=== PATIENT | male | born 1950 | race Caucasian/White ===

== ENCOUNTER 2020-02-10 11:27 | Emergency (ER) | payer MEDICARE, SELFPAY ==
[2020-02-10 11:30] VITALS: BP 173/72; PULSE 84; RESP 20; TEMP 36.8; O2SAT 96
--- NOTE | 2020-02-10 11:56 | ED.WOUNDLAC ---
HPI - Wound/Laceration General Chief Complaint: Wound/Laceration Stated Complaint: lac/left wrist Time Seen by Provider: 02/10/20 11:35 Source: patient Mode of arrival: ambulatory Limitations: no limitations History of Present Illness HPI narrative: This is a 69 year old male that presents to the ER for laceration to left wrist sustained just prior to arrival. Reports he was cleaning up scrap metal and cut the wrist. Reports bleeding to the area. He is unsure of his last tetanus vaccine. Denies numbness or decreased ROM. Related Data Allergies Allergy/AdvReac Type Severity Reaction Status Date / Time amoxicillin Allergy Unknown Skin Verified 01/16/20 14:30 Reaction cephalexin Allergy Unknown Nausea Verified 01/16/20 14:30 clarithromycin Allergy Unknown upset Verified 01/16/20 14:30 stomach propranolol Allergy Unknown Unknown Verified 01/16/20 14:30 theophylline [Chetan-Dur] Allergy Unknown intolerance Verified 01/16/20 14:30 doxycycline AdvReac Intermediate Other Verified 02/10/20 12:12 Review of Systems Review of Systems: Narrative: CONSTITUTIONAL: Denies fever SKIN: Reports laceration MUSCULOSKELETAL: Denies joint pain, or myalgia. NEUROLOGIC: Denies numbness All systems reviewed & are unremarkable except as noted in HPI and below PMFSH Past Medical History Medical History (Updated 02/10/20 @ 12:31 by Kateryna Cannon PA-C) Acute sinusitis Depressive disorder, not elsewhere classified Essential (primary) hypertension GERD with esophagitis Obstructive sleep apnea (adult) (pediatric) Type 2 diabetes mellitus without complication, without long-term current use of insulin Unspecified asthma Surgical History Surgical History H/O lumbosacral spine surgery History of carpal tunnel surgery History of phacoemulsification of cataract of both eyes with intraocular lens implantation 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 HEAD: Normocephalic, atraumatic. EYES: EOMI. EXTREMITIES: Normal range of motion. No edema. Left wrist ventral surface with 1.5cm linear laceration into subcutaneous tissue SKIN: Warm, dry, no rash. NEURO: No focal deficits. Alert and oriented x3. PSYCH: Normal mood and affect Course Vital Signs Vital signs: Vital Signs Temperature 98.2 F 02/10/20 11:30 Pulse Rate 84 02/10/20 11:30 Respiratory Rate 02/10/20 11:30 Blood Pressure 173/72 H 02/10/20 11:30 Pulse Oximetry 96 02/10/20 11:30 Temperature 98.2 F 02/10/20 11:30 Pulse Rate 84 02/10/20 11:30 Respiratory Rate 02/10/20 11:30 Blood Pressure 173/72 H 02/10/20 11:30 Pulse Oximetry 96 02/10/20 11:30 Procedures Laceration Laceration 1: Date: 02/10/20 Time: 12:30 Site: upper extremity Side (If applicable): left Size (cm): 1.5 Description: linear Depth: simple, single layer Local Anesthetic: lidocaine 1% and with epi Amount of anesthesia used (mL): 2 Pre-repair: irrigated ====== Skin Level ====== Skin layer closed with: nylon Size (cm): 5-0 Number of sutures: 3 ====== Subcutaneous Layer ====== ====== Muscle Layer ====== ====== Tendon Layer ====== Dressing: Covered with antibiotic ointment, Telfa, Kerlix and Coban MDM - Wound/Laceration MDM Narrative Medical decision making narrative: Patient presents the emergency department for laceration to left wrist sustained just prior to arrival. Patient's wound was irrigated and closed with sutures. Patient was updated on tetanus. Patient and family were educated on wound care. He is to follow-up with primary care doctor. He was given warni
[2020-02-10] MEDS: TETANUS,DIPHTHERIA,AC PERTUSSIS ADULT (0.5 ML) BOOSTRIX IM (12:40)
== END 2020-02-10 13:36 | disposition home or self-care (01) ==
PROVIDERS: Emergency Provider Emergency Medicine; PCP Family Medicine
DX: S61.512A Laceration without foreign body of left wrist, initial encounter (principal); I10 Essential (primary) hypertension; K21.0 Gastro-esophageal reflux disease with esophagitis; G47.33 Obstructive sleep apnea (adult) (pediatric); E11.9 Type 2 diabetes mellitus without complications; J45.909 Unspecified asthma, uncomplicated; Z98.42 Cataract extraction status, left eye; Z98.41 Cataract extraction status, right eye; Z96.1 Presence of intraocular lens; W26.8XXA Contact with other sharp object(s), not elsewhere classified, initial encounter; Z23 Encounter for immunization
CPT/HCPCS: 12001; 90471; 90715; 99282

== ENCOUNTER 2020-07-11 13:14 | Emergency (ER) | payer MEDICARE, SELFPAY ==
--- NOTE | 2020-07-11 13:23 | ED.URI ---
HPI - URI/Sore Throat General Chief Complaint: Upper Respiratory Infection Stated Complaint: sinus Time Seen by Provider: 07/11/20 13:23 Source: patient and RN notes reviewed History of Present Illness HPI Narrative: Patient is a 70-year-old male who presents the urgent care with complaints of 2 to 3-week history of ear pressure, intermittent headaches and sinus pressure. Patient states he has a long history of sinusitis and typically sees his PCP. However, when he called this past week they told him they would not see him in the office because he may have a virus . Patient was not sent for coronavirus testing. Denies of any recent coughing, shortness of breath, nausea, vomiting, fever. Patient states that symptoms have progressively gotten worse over the last week, now causing some dizziness. Patient has never followed up with an ENT. States that even though doxycycline is on his allergy list, he took 2 leftover doses without any improvement of symptoms. Patient has also been using Flonase nasal spray. No other acute complaints. No acute distress noted. Patient read the plan of care. Related Data Home Medications Medication Instructions Recorded Confirmed fluticasone propionate 2 spray INTRANASAL DAILY 07/11/20 07/11/20 metoprolol succinate 50 mg PO DAILY 07/11/20 07/11/20 Allergies Allergy/AdvReac Type Severity Reaction Status Date / Time amoxicillin Allergy Unknown Skin Verified 07/11/20 13:26 Reaction cephalexin Allergy Unknown Nausea Verified 07/11/20 13:26 clarithromycin Allergy Unknown upset Verified 07/11/20 13:26 stomach propranolol Allergy Unknown Unknown Verified 07/11/20 13:26 theophylline [Chetan-Dur] Allergy Unknown intolerance Verified 07/11/20 13:26 doxycycline AdvReac Intermediate turns Verified 07/11/20 13:26 mouth white Review of Systems Review of Systems: Narrative: CONSTITUTIONAL: Denies fever, chills, or sweats. EYES: Denies visual changes, redness, or discharge. ENT: Reports of nasal congestion, head congestion, postnasal drainage and bilateral otalgia CARDIOVASCULAR: Denies chest pain, palpitations, or edema. RESPIRATORY: Denies cough or dyspnea. GASTROINTESTINAL: Denies abdominal pain, nausea, vomiting, or diarrhea. GENITOURINARY: Denies dysuria or hematuria. SKIN: Denies rash or itching. MUSCULOSKELETAL: Denies back pain, joint pain, or myalgia. NEUROLOGIC: Reports of intermittent headaches All other systems reviewed are negative, except as documented in HPI. [facility] Social History Social History Smoking status: Never smoker Alcohol intake: never Comments At the time of my signature, I reviewed and agree with the nursing past medical, surgical, social, and family history. There is no relevant family history pertinent to the patient complaint. Exam Narrative: Exam Narrative: GENERAL: This is a well-nourished, well-developed patient, in no apparent distress. HEAD: normocephalic, atraumatic. Mild frontal sinus tenderness EYES: PERRL. Sclera clear/white. Vision is grossly intact. EARS: External ears normal, auditory canals clear and without drainage, TMs normal without perforation. Hearing grossly intact. NOSE: External nose normal with no obvious nasal discharge, nares without redness, no rhinorrhea. THROAT: Mucous membranes moist, posterior pharynx clear. Mild postnasal drainage NECK: Neck supple CARDIOVASCULAR: Regular rate and rhythm RESPIRATORY: Clear to auscultation. Breath sounds equal bilaterally. No wheezes, rales, or rhonchi. SKIN: warm, intact with no suspicious lesions or rash, good texture and turgor. NEURO: awake, alert, and oriented to person, place and time. There were no obvious focal neurologic abnormalities. EXTREMITIES: No clubbing, cyanosis, or edema. Course Vital Signs Vital signs: Vital Signs Temperature 98.3 F 07/11/20 13:24 Pulse Rate 85 07/11/20 13:24 Respiratory Rate 20 07/11/20
[2020-07-11 13:24] VITALS: BP 151/65; PULSE 85; RESP 20; TEMP 36.8; O2SAT 97
== END 2020-07-11 13:43 | disposition home or self-care (01) ==
PROVIDERS: Emergency Provider Nurse Practitioner Family; PCP Family Medicine
DX: J32.9 Chronic sinusitis, unspecified (principal); E78.00 Pure hypercholesterolemia, unspecified; I10 Essential (primary) hypertension; J44.9 Chronic obstructive pulmonary disease, unspecified; G47.30 Sleep apnea, unspecified; K21.9 Gastro-esophageal reflux disease without esophagitis; Z96.653 Presence of artificial knee joint, bilateral; E11.9 Type 2 diabetes mellitus without complications
CPT/HCPCS: 99213; G0463

== ENCOUNTER → 2021-01-03 08:08 | Outpatient (CLI) | payer MEDICARE, SELFPAY ==
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
== END ==
DX: J32.1 Chronic frontal sinusitis (principal)
CPT/HCPCS: 70486

== ENCOUNTER 2021-02-05 09:17 | Outpatient (CLI) | payer MEDICARE, SELFPAY ==
--- NOTE | 2021-02-05 12:49 | WPDSIXMINUTE ---
Six Minute Walk This is a 6 minutes walk test. The test was performed and interpreted in accordance with the 2014 ERS/ATS task force guidelines. Findings: The patient's resting room air oxygen saturation measured by pulse oximetry was 91% and heart rate was 71 bpm. Patient ambulated for 366 meters and oxygen saturation remained 91 to 94%. Heart rate at the end of the study was 103 bpm. There are no prior studies for comparison. Six Minute Walk Procedure Procedure Performed Pulmonary Stress Test (6 min walk)
--- NOTE | 2021-02-05 12:51 | P.PCNPFT_ITS ---
PFT Interpretation This is a pulmonary function test with pre and post-bronchodilator spirometry, plethysmography and diffusing capacity. The test was performed and results interpreted in accordance with the 2019 and 2005 ATS/ERS Task Force guidelines respectively using the Global Lung Function Initiative-2012 reference equations. Patient demonstrated good effort and c ooperation. Reproducibility criteria were met. The quality of the pre bronchodilator spirometry maneuver was Grade A and post bronchodilator spirometry maneuver was Grade A. Findings: Spirometry: There is decreased maximal expiratory airflow at low lung volumes with a mildly concave expiratory flow tracing. The contour of the inspiratory flow tracing is normal. The pre bronchodilator FVC is 2.85 L, 68% predicted. The pre bronchodilator FEV1 is 2.09 L, 66% predicted. The FEV1: FVC ratio 73%. The post bronchodilator FVC is 2.83 L, representing a 1% decrease. The post bronchodilator FEV1 is 2.27 L, representing a 9% increase. Plethysmography: The total lung capacity is 6.90 L, 98% predicted. Functional residual capacity is 4.11 L, 109% predicted. The residual volume is 3.87 L, 155% predicted. Diffusing capacity: The absolute diffusion capacity is 16.5, 64% predicted. The diffusing capacity corrected for alveolar volume is 3.85, 99% predicted. In comparison to previous pulmonary function test performed on 04/20/2018 the post bronchodilator FVC is unchanged from 2.97 L to 2.83 L, the post bronchodilator FEV1 is unchanged from 2.44 L to 2.27 L. the total lung capacity is decreased from 7.96 L to 6.90 L. The functional residual capacity is unchanged from 4.25 L to 4.11 L. The residual volume has remained unchanged from 4.23 L to 3.87 L. The absolute diffusion capacity is decreased from 19.5 to 16.5. The DLCO corrected for alveolar volume has decreased from 4.53 to 3.85. Impression: There is a moderate obstructive abnormality without significant improvement after inhaling a single dose of albuterol. The increase in residual volume is consistent with air trapping from an obstructive abnormality. The absolute diffusing capacity is mildly decreased and normalizes when corrected for alveolar volume. In comparison to the previous pulmonary function test on 04/20/2018 there has been a greater than anticipated time dependent decrease in total lung capacity, absolute diffusing capacity and diffusing capacity corrected for alveolar volume with no change in the FVC, FEV1, functional residual capacity, and residual volume. Clinical correlation is recommended. There are no prior studies for comparison PFT Procedure Performed PFT Procedure Performed Spirometry with Pre/Post Bronchodilator Plethysmography (Lung Vol) Diffusing Cap (DLCO)
== END 2021-02-05 09:18 | disposition home or self-care (01) ==
PROVIDERS: PCP Family Medicine; Visit Provider Internal Medicine Critical Care Medicine
DX: R06.09 Other forms of dyspnea (principal); R94.2 Abnormal results of pulmonary function studies
CPT/HCPCS: 94060; 94618; 94726; 94729

== ENCOUNTER 2021-08-07 17:15 | Emergency (ER) | payer MEDICARE, SELFPAY ==
--- NOTE | ~2021-08-07 | CT_ITS ---
EXAMINATION: CT brain wo con INDICATION: Head injury COMPARISON: 07/12/2015 TECHNIQUE: Standard unenhanced head CT. The dose-length product (DLP) was 605.33 mGy-cm. The mA was a djusted according to patient size. Iterative reconstruction technique was employed. FINDINGS: There is a laceration and swelling of the frontal scalp. There is no acute intraparenchymal hemorrhage. No evidence of mass lesion. No evidence of acute infarction. There is mild periventricul ar and subcortical hypodensity probably related to small vessel ischemic disease. There is mild promi nence of the sulci and ventricles related to cerebral atrophy. Intracranial calcified cerebral athero sclerosis is noted. There are no extra-axial collections. There is no mass effect or midline shift. C hanges in the globes are likely from ocular lens surgery. The visualized sinuses and mastoid air cell s are well aerated. IMPRESSION: 1. No acute intracranial abnormality. 2. Age related findings. Reviewed, dictated and finalized at [facility].
--- NOTE | ~2021-08-07 | XR_ITS ---
EXAMINATION: XR wrist RT min 3V INDICATION: Right wrist pain TECHNIQUE: Four views of the right wrist are obtained. COMPARISON: None available FINDINGS: Bone alignment is normal. There is a questionable fracture at the base of the second metaca rpal seen only on the lateral view. Dorsal buckling of the distal radius is likely related to prior i njury. IMPRESSION: 1. Possible fracture at the base of the second metacarpal. Consider further evaluation with CT. Reviewed, dictated and finalized at [facility]. IMPRESSION: 1. Possible fracture at the base of the second metacarpal. Consider further azul luation with CT.
--- NOTE | ~2021-08-07 | CT_ITS ---
EXAMINATION: CT facial bones wo con DATE: 08/07/2021 18:01 INDICATION: Head injury TECHNIQUE: Computed tomography (CT) of the facial bones and maxillofacial region was performed withou t intravenous contrast. The dose-length product (DLP) was 738.35 mGy-cm. Automated exposure control a nd iterative reconstruction technique were employed. COMPARISON: None. FINDINGS: There is a midline frontal scalp laceration. There are comminuted fractures of the nasal rea jerman. No additional facial bone fracture is identified. The globes and orbits are intact. Changes in t he globes are likely from ocular lens surgery. There is moderate to severe spondylosis of the visuali zed cervical spine. IMPRESSION: 1. Comminuted nasal bone fractures. 2. Midline frontal scalp laceration. Reviewed, dictated and finalized at [facility].
[2021-08-07 17:17] VITALS: BP 165/81; PULSE 74; RESP 18; TEMP 36.6; O2SAT 97
--- NOTE | 2021-08-07 17:42 | ED.FALL ---
HPI - Fall General Chief Complaint: Fall Stated Complaint: FALL Source: RN notes reviewed History of Present Illness HPI Narrative: Patient presents emergency department from home via EMS for fall. Patient states that he was walking his basement when he tripped on some cords and fell striking his head on the stairs notes a laceration across his forehead as well as a laceration on his nose patient states he did not lose consciousness but did see stars . Patient also notes mild pain to his right wrist he denies any other trauma or injury denies any neck pain chest pain, shortness of breath abdominal pain nausea vomiting unsure of last tetanus shot Related Data Home Medications Medication Instructions Recorded Confirmed fluticasone propionate 2 spray INTRANASAL DAILY 07/11/20 07/30/21 Allergies Allergy/AdvReac Type Severity Reaction Status Date / Time amoxicillin Allergy Unknown Skin Verified 07/30/21 11:21 Reaction cephalexin Allergy Unknown Nausea Verified 07/30/21 11:21 clarithromycin Allergy Unknown upset Verified 07/30/21 11:21 stomach propranolol Allergy Unknown Unknown Verified 07/30/21 11:21 theophylline [Chetan-Dur] Allergy Unknown intolerance Verified 07/30/21 11:21 doxycycline AdvReac Intermediate turns Verified 07/30/21 11:21 mouth white Review of Systems Review of Systems: Gen.: Denies fevers or chills Eyes: Denies eye pain or visual change ENT: Denies congestion Respiratory: Denies shortness of breath CV: Denies chest pain GI: Denies abdominal pain nausea, emesis Musculoskeletal: Denies back pain or muscle pain Neuro: Denies numbness, tingling, weakness or focal weakness Skin: Reports laceration to forehead Except as documented, all other systems reviewed and negative [facility] Past Medical History Medical History (Updated 08/07/21 @ 19:48 by Myles Brownlee DO) Acute sinusitis Depressive disorder, not elsewhere classified Essential (primary) hypertension GERD with esophagitis Obstructive sleep apnea (adult) (pediatric) Type 2 diabetes mellitus without complication, without long-term current use of insulin Unspecified asthma Surgical History Surgical History H/O lumbosacral spine surgery History of carpal tunnel surgery History of phacoemulsification of cataract of both eyes with intraocular lens implantation 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 Family History Family History Mother Diabetes mellitus Hypertension Father Family history of cardiovascular disease, Onset Age: 84 Family history of congestive heart failure, Onset Age: 84 Social History Social History Smoking status: Never smoker Alcohol intake: never Exam Narrative: APPEARANCE: No acute distress, nontoxic, resting in bed EYES: EOMI, PERRL HEENT: Normocephalic 6 mm horizontal laceration across anterior forehead that is linear and deep with mild venous bleeding no foreign bodies, 0.5 cm laceration of the bridge of the nose nares patent or mucosa moist for range of motion of the jaw without pain Neck: Supple no midline tenderness palpation full range of motion of the neck without pain RESPIRATORY: No respiratory distress Clear to auscultation bilaterally with no rhonchi wheezing or rales. CARDIOVASCULAR: Regular rate and rhythm without murmurs rubs or gallops. ABDOMINAL: Soft, nontender, nondistended, no rebound or guarding MUSCULOSKELETAl: Moves all extremities. No clubbing, cyanosis or edema. Tender palpation of the right dorsal wrist no swelling full flexion-extension of the wrist with pain with full flexion no tenderness of the right elbow or shoulder radial pulse 2+ neurovascular NEURO: Awake and alert x 4. Following commands, speech normal, no focal deficits SKIN:: Warm, dry. No rashes lesions or abrasions PSYCHIATRIC: Normal af
[2021-08-07] MEDS: TETANUS,DIPHTHERIA,AC PERTUSSIS ADULT (0.5 ML) BOOSTRIX IM (18:26)
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
[2021-08-07] MEDS: CLINDAMYCIN HCL 150 MG CAP 300 MG PO (20:12)
[2021-08-07 20:29] VITALS: BP 181/92; PULSE 74; RESP 16; O2SAT 95
== END 2021-08-07 20:18 | disposition home or self-care (01) ==
PROVIDERS: Emergency Provider Emergency Medicine; PCP Family Medicine
DX: S02.2XXA Fracture of nasal bones, initial encounter for closed fracture (principal); S01.21XA Laceration without foreign body of nose, initial encounter; S01.81XA Laceration without foreign body of other part of head, initial encounter; S63.501A Unspecified sprain of right wrist, initial encounter; Z23 Encounter for immunization; I10 Essential (primary) hypertension; K21.00 Gastro-esophageal reflux disease with esophagitis, without bleeding; G47.33 Obstructive sleep apnea (adult) (pediatric); E11.9 Type 2 diabetes mellitus without complications; J45.909 Unspecified asthma, uncomplicated; Z98.42 Cataract extraction status, left eye; Z98.41 Cataract extraction status, right eye; Z96.1 Presence of intraocular lens; Z79.84 Long term (current) use of oral hypoglycemic drugs; W18.09XA Striking against other object with subsequent fall, initial encounter
CPT/HCPCS: 12011; 12015; 12052; 70450; 70486; 73110; 90471; 90715; 99284; A9270

== ENCOUNTER 2021-08-25 11:51 | Outpatient (CLI) | payer MEDICARE, SELFPAY ==
--- NOTE | ~2021-08-25 | XR_ITS ---
XR wrist RT 2V 08/25/2021 12:12 Indication: Right wrist pain Procedure: 2 views right wrist Comparison: 08/07/2021 Findings: No fracture, subluxation or dislocation. No significant soft tissue abnormality. No foreign bodies. Impression: 1: No acute fracture. Reviewed, dictated and finalized at [facility]. Impression: 1: No acute fracture.
== END 2021-08-25 11:52 | disposition home or self-care (01) ==
LOC: ANHIMG 11:56
PROVIDERS: PCP Family Medicine; Visit Provider Physician Assistant
DX: M25.539 Pain in unspecified wrist (principal)
CPT/HCPCS: 73100

== ENCOUNTER 2021-10-08 16:44 | Emergency (ER) | payer MEDICARE, SELFPAY ==
--- NOTE | 2021-10-08 16:50 | ED.URI ---
HPI - URI/Sore Throat General Chief Complaint: Upper Respiratory Infection Stated Complaint: sorethroat,cough,chills Time Seen by Provider: 10/08/21 16:50 Source: patient and RN notes reviewed History of Present Illness [facility] Narrative: Patient is a 71-year-old male who presents the urgent care with complaints of cough, postnasal drainage, chills and sore throat. Patient states it started on Thanksgiving and he has taken cough drops and using his normal inhalers for his COPD. Patient denies of any increase shortness of breath or chest pain. Patient denies of any known exposures to Covid or influenza. Patient denies of any fever, nausea or vomiting. Patient has been Covid vaccinated. No other acute complaints. No acute distress noted. Patient read the plan of care. Some parts of this dictation were generated by voice recognition software and may contain typographical and/or grammatical inaccuracies. Related Data Home Medications Medication Instructions Recorded Confirmed cetirizine [Zyrtec] 10 mg PO DAILY 10/08/21 10/08/21 ipratropium-albuterol 3 ml INHALATION Q4H 10/08/21 10/08/21 Allergies Allergy/AdvReac Type Severity Reaction Status Date / Time amoxicillin Allergy Unknown Skin Verified 10/08/21 17:00 Reaction cephalexin Allergy Unknown Nausea Verified 10/08/21 17:00 clarithromycin Allergy Unknown upset Verified 10/08/21 17:00 stomach propranolol Allergy Unknown Unknown Verified 10/08/21 17:00 theophylline [Chetan-Dur] Allergy Unknown intolerance Verified 10/08/21 17:00 doxycycline AdvReac Intermediate turns Verified 10/08/21 17:00 mouth white Review of Systems Review of Systems: CONSTITUTIONAL: Denies fever, chills, or sweats. EYES: Denies visual changes, redness, or discharge. ENT: Reports of congestion, sore throat, postnasal drainage CARDIOVASCULAR: Denies chest pain, palpitations, or edema. RESPIRATORY: Reports of cough without any increase in dyspnea GASTROINTESTINAL: Denies abdominal pain, nausea, vomiting, or diarrhea. GENITOURINARY: Denies dysuria or hematuria. SKIN: Denies rash or itching. MUSCULOSKELETAL: Denies back pain, joint pain, or myalgia. NEUROLOGIC: Denies headache, numbness, or weakness. All other systems reviewed are negative, except as documented in HPI. 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 There is no relevant family history pertinent to the patient complaint. Exam Narrative: GENERAL: This is a well-nourished, well-developed patient, in no apparent distress. HEAD: normocephalic, atraumatic. EYES: PERRL. Sclera clear/white. Vision is grossly intact. Clear drainage bilaterally EARS: External ears normal, auditory canals clear and without drainage, TMs normal without perforation. Hearing grossly intact. NOSE: External nose normal with no obvious nasal discharge, nares
[2021-10-08 16:55] VITALS: BP 156/76; PULSE 92; RESP 18; TEMP 37.2; O2SAT 97
== END 2021-10-08 17:08 | disposition home or self-care (01) ==
PROVIDERS: Emergency Provider Nurse Practitioner Family; PCP Family Medicine
DX: J44.9 Chronic obstructive pulmonary disease, unspecified (principal); E11.9 Type 2 diabetes mellitus without complications; I10 Essential (primary) hypertension
CPT/HCPCS: 99213; G0463

== ENCOUNTER 2021-10-14 15:11 | Emergency (ER) | payer MEDICARE, SELFPAY ==
--- NOTE | ~2021-10-14 | XR_ITS ---
EXAMINATION: XR chest 2V DATE: 10/14/2021 15:33 INDICATION: Productive cough TECHNIQUE: PA and lateral views of the chest are obtained. COMPARISON: 07/12/2015 FINDINGS: The lungs are free of acute opacities. There is no pleural effusion or pneumothorax. The ca rdiomediastinal silhouette is normal. There is moderate thoracic spondylosis. IMPRESSION: 1. No acute cardiopulmonary abnormality. Reviewed, dictated and finalized at location A. TRIMMER
[2021-10-14 15:22] VITALS: BP 127/93; PULSE 64; RESP 18; TEMP 36.9; O2SAT 97
--- NOTE | 2021-10-14 16:16 | ED.URI ---
HPI - URI/Sore Throat General Chief Complaint: Upper Respiratory Infection Stated Complaint: cough,phlegm Source: patient and RN notes reviewed Limitations: no limitations History of Present Illness HPI Narrative: The obese vaccinated patient, reports he is a non-smoker/nondrinker, presents with a weeklong history of productive cough and congestion associated with possible wheezing. He was seen here about a week ago and given a course of Levaquin and Medrol Dosepak-for which he like a refill. No fever, sore throat, earache, calf edema/pain, noncompliance. Symptoms are mild to moderate associated with wheezing. 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] Related Data Home Medications Medication Instructions Recorded Confirmed cetirizine [Zyrtec] 10 mg PO DAILY 10/08/21 10/14/21 ipratropium-albuterol 3 ml INHALATION Q4H 10/08/21 10/14/21 Allergies Allergy/AdvReac Type Severity Reaction Status Date / Time amoxicillin Allergy Unknown Skin Verified 10/14/21 15:16 Reaction cephalexin Allergy Unknown Nausea Verified 10/14/21 15:16 clarithromycin Allergy Unknown upset Verified 10/14/21 15:16 stomach propranolol Allergy Unknown Unknown Verified 10/14/21 15:16 theophylline [Chetan-Dur] Allergy Unknown intolerance Verified 10/14/21 15:16 doxycycline AdvReac Intermediate turns Verified 10/14/21 15:16 mouth white Review of Systems Review of Systems: General/Constitutional: No weight loss,fever Eyes: N0: Redness,discharge Ears/Nose/Throat: No: Epistaxis,ear discharge Respiratory: Denies: Hemoptysis Gastrointestinal: No Vomiting, Bleeding-rectal Skin: No Lumps, eruption Neurologic: No Focal Weakness,Sz Hematologic: Denies: Petechiae/Purpura Psychiatric: No: Suicida ideationl All Other Systems: Reviewed and Negative [facility] Past Medical History Medical History (Updated 10/15/21 @ 11:23 by Maxim Unger MD) Acute sinusitis Depressive disorder, not elsewhere classified Essential (primary) hypertension GERD with esophagitis Obstructive sleep apnea (adult) (pediatric) Type 2 diabetes mellitus without complication, without long-term current use of insulin Unspecified asthma Surgical History Surgical History H/O lumbosacral spine surgery History of carpal tunnel surgery History of phacoemulsification of cataract of both eyes with intraocular lens implantation 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 There is no relevant family history pertinent to the presenting complaint Exam Narrative: General Appearance: Well appearing, obese/well nourished EYE: PERRLA, Conjunctiva clear Ears: Auditory canal normal, TM normal Nose: Rhinorrhea, Mucousal erythema Mouth/Throat: MM moist, Uvula midline, Pharyngeal erythema Neck: Supple, No adenopathy Respiratory: No respiratory distress, increased AP diameter, mild decreased BS especially bases, scattered wheezing Cardiovascular: RRR, No JVD Musculoskeletal: Non tender, Normal strength Skin: Warm, Dry Neurological: A&O x3, CN II-XII intact Psychiatric: Normal mood, Normal affect Course Vital Signs Vital signs: Vital Signs Temperature 98.4 F 10/14/21 15:22 Pulse Rate 64 10/14/21
[2021-10-15 20:25] LABS: SARS-CoV-2 RNA PCR Negative
== END 2021-10-14 16:23 | disposition home or self-care (01) ==
PROVIDERS: Emergency Provider Emergency Medicine; PCP Family Medicine
DX: J21.9 Acute bronchiolitis, unspecified (principal); J45.901 Unspecified asthma with (acute) exacerbation; Z20.822 Contact with and (suspected) exposure to COVID-19; I10 Essential (primary) hypertension; F32.A Depression, unspecified; K21.00 Gastro-esophageal reflux disease with esophagitis, without bleeding; G47.33 Obstructive sleep apnea (adult) (pediatric); E11.9 Type 2 diabetes mellitus without complications; Z79.4 Long term (current) use of insulin
CPT/HCPCS: 71046; 99213; C9803; G0463; U0003; U0005

== ENCOUNTER 2022-04-24 10:59 | Emergency (ER) | payer MEDICARE, SELFPAY ==
--- NOTE | 2022-04-24 11:16 | ED.URI ---
HPI - URI/Sore Throat General Chief Complaint: Upper Respiratory Infection Stated Complaint: Sore Throat,Neck Pain,Sinus Time Seen by Provider: 04/24/22 11:17 History of Present Illness HPI Narrative: Hi Whaley is a 72 yo male with a PMH of HTN, high cjolesterol, GERD, diabetes, depression, chronic progressive lung disease, who comes with 4 days of sore throat and drainage, no fever. Related Data Home Medications Medication Instructions Recorded Confirmed cetirizine 10 mg tablet (Zyrtec) 10 mg PO DAILY 10/08/21 04/24/22 Allergies Allergy/AdvReac Type Severity Reaction Status Date / Time amoxicillin Allergy Unknown Skin Verified 04/24/22 11:03 Reaction cephalexin Allergy Unknown Nausea Verified 04/24/22 11:03 clarithromycin Allergy Unknown upset Verified 04/24/22 11:03 stomach propranolol Allergy Unknown Unknown Verified 04/24/22 11:03 theophylline [Chetan-Dur] Allergy Unknown intolerance Verified 04/24/22 11:03 doxycycline AdvReac Intermediate turns Verified 04/24/22 11:03 mouth white Review of Systems Review of Systems: CONSTITUTIONAL: Denies fever, chills, sweats. EYES: Denies visual changes, redness, discharge. ENT: Denies rhinorrhea,has congestion, has sore throat, otalgia. CARDIOVASCULAR: Denies chest pain, palpitations, edema. RESPIRATORY: Denies dyspnea, wheezing, cough GASTROINTESTINAL: Denies abdominal pain, nausea, vomiting, diarrhea. GENITOURINARY: Denies dysuria, hematuria, abnormal discharge SKIN: Denies rash or itching. NEUROLOGIC: Denies numbness, or focal weakness. PSYCHIATRIC: Denies anxiety or depression. [facility] Past Medical History Medical History Acute sinusitis CHF (congestive heart failure) COPD (chronic obstructive pulmonary disease) Depressive disorder, not elsewhere classified Essential (primary) hypertension GERD with esophagitis Obstructive sleep apnea (adult) (pediatric) Pain in wrist Type 2 diabetes mellitus without complication, without long-term current use of insulin Unspecified asthma Surgical History Surgical History H/O lumbosacral spine surgery History of carpal tunnel surgery History of phacoemulsification of cataract of both eyes with intraocular lens implantation History of total bilateral 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 There is no relevant family history pertinent to the presenting complaint. Exam Narrative: GENERAL: This is a well-nourished, well-developed patient, in mild distress. HEAD: normocephalic, atraumatic. EYES: PERRL. Sclera clear/white. Vision is grossly intact. EARS: External ears normal, auditory canals clear and witho mld clear drainage, TMs normal without perforation. Hearing grossly intact. NOSE: External nose normal without nasal discharge, nares without redness, no rhinorrhea. THROAT: Mucous membranes moist, posterior pharynx erythema NECK: Neck supple, non-tender CARDIOVASCULAR: Regular rate and rhythm without murmurs, gallops, or rubs. RESPIRATORY: Clear to auscultation. Breath sounds equal bilaterally. No wheezes, rales, or rhonchi. GASTROINTESTINAL: Not done SKIN: warm, intact with no suspicious lesions or rash, good texture and turgor. NEURO: awake, alert, and oriented to person, place and time. There were no obvious focal neurologic abnormalities. Steady gait EXTREMITIES: Normal rang
[2022-04-24 11:29] VITALS: BP 150/98; PULSE 87; RESP 18; TEMP 37.1; O2SAT 96
== END 2022-04-24 11:37 | disposition home or self-care (01) ==
PROVIDERS: Emergency Provider Nurse Practitioner; PCP Family Medicine
DX: J02.0 Streptococcal pharyngitis (principal); J44.9 Chronic obstructive pulmonary disease, unspecified; K21.00 Gastro-esophageal reflux disease with esophagitis, without bleeding; G47.33 Obstructive sleep apnea (adult) (pediatric); E11.9 Type 2 diabetes mellitus without complications; J45.909 Unspecified asthma, uncomplicated; I11.0 Hypertensive heart disease with heart failure; I50.9 Heart failure, unspecified; Z96.653 Presence of artificial knee joint, bilateral
CPT/HCPCS: 87880; 99213; G0463

== ENCOUNTER 2022-06-02 09:54 | Emergency (ER) | payer MEDICARE, SELFPAY ==
[2022-06-02 10:14] VITALS: BP 176/74; PULSE 79; RESP 18; TEMP 36.6; O2SAT 98
--- NOTE | 2022-06-02 10:16 | ED.URI ---
HPI - URI/Sore Throat General Chief Complaint: Upper Respiratory Infection Stated Complaint: strep test Time Seen by Provider: 06/02/22 10:16 Source: patient, RN notes reviewed and old records reviewed Mode of arrival: ambulatory Limitations: no limitations History of Present Illness HPI Narrative: 72-year-old male presents to the [facility] with complaints of a sore mouth for about 1 week. Patient is concerned about strep throat, recently diagnosed. Patient reports that his entire mouth is burning. Similar to when he saw his primary care about a month ago. Patient removed his dentures. White patches noted to the roof of his mouth and on the denture . Denies any fevers. Denies any nausea vomiting or diarrhea. No treatment prior to arrival MD elicited complaint: other (Sore mouth and throat) Related Data Home Medications Medication Instructions Recorded Confirmed cetirizine 10 mg tablet (Zyrtec) 10 mg PO DAILY 10/08/21 05/01/22 Allergies Allergy/AdvReac Type Severity Reaction Status Date / Time amoxicillin Allergy Unknown Skin Verified 05/01/22 11:26 Reaction cephalexin Allergy Unknown Nausea Verified 05/01/22 11:26 clarithromycin Allergy Unknown upset Verified 05/01/22 11:26 stomach propranolol Allergy Unknown Unknown Verified 05/01/22 11:26 theophylline [Chetan-Dur] Allergy Unknown intolerance Verified 05/01/22 11:26 doxycycline AdvReac Intermediate turns Verified 05/01/22 11:26 mouth white Review of Systems Review of Systems: All systems reviewed & are unremarkable except as noted in HPI and below Constitutional: Constitutional: Reports no additional constitutional complaints, Denies chills and Denies fever(s) Eyes: Eyes: Reports no additional eye complaints ENT: Reports as per HPI Cardiovascular: Cardiovascular: Reports no additional cardiovascular complaints Respiratory: Respiratory: Reports no additional respiratory complaints Gastrointestinal: Gastrointestinal: Reports no additional gastrointestinal complaints Musculoskeletal: Musculoskeletal: Reports no additional musculoskeletal complaints Integumentary/Breasts: Skin/Breast: Reports system reviewed and no additional complaints, except as docu Neurologic: Reports system reviewed and no additional complaints, except as documented Psychiatric: Psychiatric: Reports no additional psychiatric complaints Allergic/Immunologic: Allergic/Immunologic: Reports no additional allergic/immunologic complaints [facility] Past Medical History Medical History Acute sinusitis CHF (congestive heart failure) COPD (chronic obstructive pulmonary disease) Depressive disorder, not elsewhere classified Essential (primary) hypertension GERD with esophagitis Obstructive sleep apnea (adult) (pediatric) Pain in wrist Type 2 diabetes mellitus without complication, without long-term current use of insulin Unspecified asthma Surgical History Surgical History H/O lumbosacral spine surgery History of carpal tunnel surgery History of phacoemulsification of cataract of both eyes with intraocular lens implantation 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 There is no relevant family history pertinent to the patient complaint. Exam Const: General: healthy appearing, no acute distress
== END 2022-06-02 10:35 | disposition home or self-care (01) ==
PROVIDERS: Emergency Provider Nurse Practitioner; PCP Family Medicine
DX: B37.0 Candidal stomatitis (principal); I11.0 Hypertensive heart disease with heart failure; I50.9 Heart failure, unspecified; J44.9 Chronic obstructive pulmonary disease, unspecified; K21.00 Gastro-esophageal reflux disease with esophagitis, without bleeding; G47.33 Obstructive sleep apnea (adult) (pediatric); E11.9 Type 2 diabetes mellitus without complications; Z96.653 Presence of artificial knee joint, bilateral
CPT/HCPCS: 87081; 87880; 99213; G0463

== ENCOUNTER 2022-09-03 07:21 | Outpatient (CLI) | payer MEDICARE, SELFPAY ==
--- NOTE | 2022-09-03 07:42 | ECHO_ITS ---
Patient Info Name: Hi Whaley Age: 72 years : 1950 Gender: Male Ht: 70 in Wt: 280 lbs BSA: 2.56 m2 HR: 67 bpm BP: 186 / 82 mmHg Technical Quality: Fair Exam Date: 09/03/2022 8:00 AM Exam Location: [facility] Patient Status: Outpatient Admit Date: 09/03/2022 Staff Ordering Physician: Laya Casas DO Timber Packer: Leigha Trammell RDCS Attending Provider: Laya Casas DO Referring Physician: Augusto KLEIN; Exam Type: CA echo doppler color flow Study Info Indications I50.9 - Heart failure, unspecified Complete two-dimensional, color flow and Doppler transthoracic echocardiogram is performed. Summary 1. Complete two-dimensional, color flow and Doppler transthoracic echocardiogram is performed. 2. Left ventricular chamber dimension is normal. 3. Left ventricular systolic function is normal, estimated at 55-60%. 4. There is mildly increased left ventricular wall thickness. 5. The left ventricular diastolic function is grade I diastolic dysfunction. 6. E/e' 9 is minimally elevated. 7. Global longitudinal strain is abnormal at -14.7%. 8. Moderate lipomatous interatrial septum. 9. No pulmonary hypertension, estimated pulmonary arterial systolic pressure is 29 mmHg. Left Ventricle E/e' 9 is minimally elevated. Global longitudinal strain is abnormal at -14.7%. Left ventricular chamber dimension is normal. Left ventricular systolic function is normal, estimated at 55-60%. There is mildly increased left ventricular wall thickness. The left ventricular diastolic function is grade I diastolic dysfunction. Right Ventricle Right ventricular systolic function is normal and with normal TAPSE 2.7 cm. Right ventricular chamber dimension is normal. Left Atria Left atrial chamber dimension is normal. Right Atria Right atrial chamber dimension is normal. Atrial Septum Moderate lipomatous interatrial septum. Aortic Valve The aortic valve is trileaflet. There is no aortic valve stenosis. There is no aortic valve regurgitation. Pulmonic Valve There is no pulmonic regurgitation. Mitral Valve There is no mitral valve stenosis. There is no mitral valve regurgitation. Tricuspid Valve There is no tricuspid valve regurgitation. No pulmonary hypertension, estimated pulmonary arterial systolic pressure is 29 mmHg. Pericardium/Pleural There is no pericardial effusion. Inferior Vena Cava Normal inferior vena cava with >50% collapse upon inspiration consistent with normal right atrial pressure, 5 mmHg. Aorta The aortic root size at the sinus of Valsalva is normal. Left Ventricular Outflow Tract Name Value Normal LVOT 2D LVOT Diameter 2.1 cm LVOT Doppler LVOT Peak Gradient 4 mmHg LVOT Mean Gradient 2 mmHg LVOT VTI 26 cm LVOT VTI/AV VTI Ratio 0.9 LVOT Stroke Volume 92 ml LVOT CO 5.6 l/min LVOT CI 2.2 l/min/m2 Pulmonic Valve
== END 2022-09-03 07:22 | disposition home or self-care (01) ==
LOC: ANHCARD 07:23
PROVIDERS: PCP Family Medicine; Visit Provider Family Medicine
DX: I50.9 Heart failure, unspecified (principal)
CPT/HCPCS: 93306

== ENCOUNTER 2022-11-06 11:44 | Outpatient (CLI) | payer MEDICARE, SELFPAY ==
--- NOTE | ~2022-11-06 | XR_ITS ---
Clinical Indication: Shortness of breath PA and lateral views of the chest: Comparison: 10/14/2021 Findings: The lungs are clear, without evidence of focal consolidation or pleural effusion. Cardiome diastinal silhouette is within normal limits. Bones and soft tissues are unremarkable. Impression: Normal chest. Reviewed, dictated and finalized at location . FINISHER Impression: Normal chest.
[2022-11-06 14:40] LABS: Influenza A QL RT-PCR Negative (Negative); Influenza B QL RT-PCR Negative (Negative); RSV RNA, RT-PCR Negative (Negative); SARS-CoV-2 RNA PCR Negative
== END 2022-11-06 11:45 | disposition home or self-care (01) ==
LOC: ANHLAB 11:49
PROVIDERS: PCP Family Medicine; Visit Provider Physician Assistant
DX: R06.02 Shortness of breath (principal); J45.909 Unspecified asthma, uncomplicated
CPT/HCPCS: 71046; 87637

== ENCOUNTER 2022-11-21 08:07 | Emergency (ER) | payer MEDICARE, SELFPAY ==
--- NOTE | ~2022-11-21 | XR_ITS ---
XR chest 2V DATE: 11/21/2022 08:55 INDICATION: Cough, fever TECHNIQUE: PA and lateral views COMPARISON: 11/06/2022 PA and lateral chest FINDINGS: Normal heart size. Mild aortic unfolding. No hilar or mediastinal enlargement. Moderate bilateral hyperinflation. No pulmonary infiltrate or consolidation, pleural effusion or pulm onary vascular congestion or pneumothorax. Degenerative spurring of the thoracic spine. Osteopenia. IMPRESSION: Moderate hyperinflation; no active cardiopulmonary disease or significant change since Reviewed, dictated and finalized at location A. TRICIAN DECK IMPRESSION: Moderate hyperinflation; no active cardiopulmonary disease or signi ficant change since 11/06/2022
--- NOTE | 2022-11-21 08:12 | ED.URI ---
HPI - URI/Sore Throat General Chief Complaint: Upper Respiratory Infection Stated Complaint: SORE THROAT/CHILLS/FEVER Time Seen by Provider: 11/21/22 08:13 Source: patient and RN notes reviewed History of Present Illness [facility] Narrative: Patient is a 72-year-old male who presents to the Urgent Care with complaints of sore throat, fever, fatigue, cough and chills. Patient states his cough is productive but is denying any shortness of breath. Patient denies chest pain. Denies any ill exposures. States that his did wake up today feeling fatigued and chilled as well. Patient has been taking Advil. No other acute complaints. No acute distress noted. Patient aware of the plan of care. Some parts of this dictation were generated by voice recognition software and may contain typographical and/or grammatical inaccuracies. Related Data Home Medications Medication Instructions Recorded Confirmed cetirizine 10 mg tablet (Zyrtec) 10 mg PO DAILY 10/08/21 11/06/22 famotidine 40 mg tablet 40 mg PO DAILY 08/13/22 11/06/22 fluticasone propionate 50 2 spray intranasal DAILY 08/13/22 11/06/22 mcg/actuation nasal spray,suspension Allergies Allergy/AdvReac Type Severity Reaction Status Date / Time amoxicillin Allergy Unknown Skin Verified 11/21/22 08:56 Reaction cephalexin Allergy Unknown Nausea Verified 11/21/22 08:56 clarithromycin Allergy Unknown upset Verified 11/21/22 08:56 stomach propranolol Allergy Unknown Unknown Verified 11/21/22 08:56 theophylline [Chetan-Dur] Allergy Unknown intolerance Verified 11/21/22 08:56 doxycycline AdvReac Intermediate turns Verified 11/21/22 08:56 mouth white Review of Systems Review of Systems: CONSTITUTIONAL: Reports of chills and fatigue EYES: Denies visual changes, redness, or discharge. ENT: Denies rhinorrhea, congestion, otalgia. Reports of sore throat CARDIOVASCULAR: Denies chest pain, palpitations, or edema. RESPIRATORY: Reports cough without dyspnea GASTROINTESTINAL: Denies abdominal pain, nausea, vomiting, or diarrhea. GENITOURINARY: Denies dysuria or hematuria. SKIN: Denies rash or itching. MUSCULOSKELETAL: Denies back pain, joint pain, or myalgia. NEUROLOGIC: Reports of headache All other systems reviewed are negative, except as documented in HPI. [facility] Past Medical History Medical History Acute sinusitis CHF (congestive heart failure) COPD (chronic obstructive pulmonary disease) Depressive disorder, not elsewhere classified Essential (primary) hypertension GERD with esophagitis Obstructive sleep apnea (adult) (pediatric) Pain in wrist Type 2 diabetes mellitus without complication, without long-term current use of insulin Unspecified asthma Surgical History Surgical History H/O lumbosacral spine surgery History of carpal tunnel surgery History of phacoemulsification of cataract of both eyes with intraocular lens implantation 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 There is no relevant family history pertinent to the patient complaint. Exam Narrative: GENERAL: This is a well-nourished, well-developed patient, in no apparent distress. HEAD: normocephalic, atraumatic. EYES: PERRL. Sclera clear/white. Vision is grossly intact. EARS: External ears normal, auditory can
[2022-11-21 08:30] VITALS: BP 162/70; PULSE 79; RESP 16; TEMP 36.9; O2SAT 95
[2022-11-21 14:28] LABS: SARS-CoV-2 RNA PCR Negative
== END 2022-11-21 09:48 | disposition home or self-care (01) ==
PROVIDERS: Emergency Provider Nurse Practitioner Family; PCP Family Medicine
DX: B34.9 Viral infection, unspecified (principal); I50.9 Heart failure, unspecified; J44.9 Chronic obstructive pulmonary disease, unspecified; I11.0 Hypertensive heart disease with heart failure; K21.00 Gastro-esophageal reflux disease with esophagitis, without bleeding; E11.9 Type 2 diabetes mellitus without complications; J45.909 Unspecified asthma, uncomplicated; Z20.822 Contact with and (suspected) exposure to COVID-19
CPT/HCPCS: 71046; 87081; 87426; 87804; 87880; 99213; C9803; G0463; U0003; U0005

== ENCOUNTER 2023-05-21 08:12 | Outpatient (CLI) | payer MEDICARE, SELFPAY ==
[2023-05-21 12:10] LABS: Kit Draw Collected
== END 2023-05-21 08:13 | disposition home or self-care (01) ==
LOC: ANHGOSHLAB 08:16
PROVIDERS: PCP Family Medicine; Visit Provider Family Medicine
DX: E11.9 Type 2 diabetes mellitus without complications (principal); D75.89 Other specified diseases of blood and blood-forming organs; Z12.5 Encounter for screening for malignant neoplasm of prostate; I10 Essential (primary) hypertension; I50.9 Heart failure, unspecified
CPT/HCPCS: 36415

== ENCOUNTER 2025-01-30 08:02 | Outpatient (CLI) | payer MEDICARE, SELFPAY ==
--- OUTSIDE RECORDS SUMMARY | 2025-01-30 08:12 | XMS_ITS | Continuity of Care Document ---
Author Name Auto Generated, Auto Generated Organization [facility] Support Name Relationship Address Phone Kandi Whaley Emergency Contact 1 [address] [place] [address] Hi Whaley Self [address] [place] [address] Hi Whaley Financial Responsible Libertarian [address] [place] [address] Summary Purpose Consult/Referral Allergies, Adverse Reactions, Alerts Type Description/Agent Code Date Allergy Active Date Allergy Inactivated Date of Last Reaction Adverse Reactions Severity Status Comments Source of Information FDB Medic ation Name Dilaudid Active Patient History Medications No Known Medications Conditions/Problems Problem/Diagnosis Awareness of Diagnosis Code (ICD-10) Onset Date (Start Date) Resolution Date (End Date) Status Source Comments AFTERCARE FOLLOWING JOINT REPLACEMENT SURGERY Z47.1 08/09/20 16 MD Cuauhtemoc Armstrong PRESENCE OF RIGHT ARTIFICIAL KNEE JOINT Z96.651 08/09/20 16 Active MD Cuauhtemoc Garcia ENCOUNTER FOR OTHER ORTHOPEDIC AFTERCARE Z47.89 04/05/20 16 Active MD Cuauhtemoc Garcia PRESENCE OF LEFT ARTIFICIAL KNEE JOINT Z96.652 04/05/20 16 MD Cuauhtemoc Armstrong OSTEOARTHRITIS OF KNEE, UNSPECIFIED M17.9 04/05/20 16 Active MD Cuauhtemoc Garcia CHRONIC OBSTRUCTIVE PULMONARY DISEASE, UNSPECIFIED J44.9 04/05/20 16 MD Cuauhtemoc Armstrong SLEEP APNEA, UNSPECIFIED G47.30 04/05/20 16 MD Cuauhtemoc Armstrong DEPENDENCE ON OTHER ENABLING MACHINES AND DEVICES Z99.89 04/05/20 16 MD Cuauhtemoc Armstrong ESSENTIAL (PRIMARY) HYPERTENSION I10 04/05/20 16 MD Cuauhtemoc Armstrong OBESITY, UNSPECIFIED E66.9 0 16 Active MD Cuauhtemoc Garcia DIFFICULTY IN WALKING, NOT ELSEWHERE CLASSIFIED R26.2 04/05/20 16 Active MD Cuauhtemoc Garcia MUSCLE WEAKNESS (GENERALIZED) M62.81 04/05/20 16 Active MD Cuauhtemoc Garcia Procedures No Known Procedures
--- OUTSIDE RECORDS SUMMARY | 2025-01-30 08:12 | XMS_ITS | Clinical Summary ---
Author Organization [facility] Ariana albrecht Address [address], [place] [address] Phone Care Team Providers Care Pediatric Psychiatrist Name Role Phone Unavailable Primary Care Provider Unavailabl e Active Problems Problem Noted Date Diagnosed Date Acute kidney failure 08/26/2015 Essential (primary) hypertension 08/26/2015 Obstructive sleep apnea 08/26/2015 Family History Medical History Relation Comments Kidney disease Neg Hx Kidney stone Neg Hx Social History Tobacco Use Types Packs/Day Years Used Date Smoking Tobacco: Never Assessed Sex and Gender Information Value Date Recorded Sex Assigned at Not on file Gender Identity Not on file Sexual Orientation Not on file Last Filed Vital Signs Vital Sign Reading Time Taken Comments Blood Pressure 128/60 08/26/2015 12:01 AM CDT Pulse 84 08/26/2015 12:01 AM CDT Temperature 37.4 C (99.3 F) 08/26/2015 12:01 AM CDT Respiratory Rate - - Oxygen Saturation - - Inhaled Oxygen Concentration - - Weight 127 kg (280 lb) 08/26/2015 12:01 AM CDT Height 180.3 cm (5' 11 ) 08/26/2015 12:01 AM CDT Body Mass Index 39.05 08/26/2015 12:01 AM CDT Plan of Treatment Not on file
--- OUTSIDE RECORDS SUMMARY | 2025-01-30 08:12 | XMS_ITS | Clinical Summary ---
Author Organization [facility] Address [address] [place], [place] [id number] Care Team Providers Care Gas Station Clerk Name Role Phone Unavailable Primary Care Provider Unavailabl e Social History Tobacco Use Types Packs/Day Years Used Date Smoking Tobacco: Never Assessed Sex and Gender Information Value Date Recorded Sex Assigned at Not on file Legal Sex Male 7:01 PM CDT Gender Identity Not on file Sexual Orientation Not on file Plan of Treatment Health Maintenance Due Date Last Done Comments Hepatitis C 1966 DTaP, Tdap and Td Vaccines ( 1 - Tdap) 1967 Zoster Vaccines (1 of 2) 1998 Pneumococcal Vaccine: 65+ Ye ars (1 of 1 - PCV) 2013 RSV Immunization or 60+ Years (1 - 1-dose 75+ series) 2023 COVID-19 Vaccine ( - 2023-2 5 season) 2024 Influenza Adult (#1) 2024 Meningococcal B Vaccine Aged Out No l onger eligible based on patient's age to complete this topic Meningococcal Vaccine Aged Out No chantelle jasmin eligible based on patient's age to complete this topic RSV Immunizations Under 20 Months Aged Out No longer eligible based on patient's age to complete this topic Insurance [facility]
--- OUTSIDE RECORDS SUMMARY | 2025-01-30 08:12 | XMS_ITS | Referral Summary ---
Author Organization [facility] [place] [address] Address [address] [place] [address] Care Team Providers Care Business Solutions Architect Name Role Phone Dona Alvarez MD Unavailable Raudel Branch NP Unavailable [phone] Ariana Toth MD Primary Care Provider + Encounters Date Type Department Care Team Description 01/18/2025 7:18 AM CDT - 01/18/2025 11:59 PM CDT Hospital Encounter [facility] [address] [place], [place] [id number] Raudel Branch NP Cervical spinal stenosis (Primary Dx); Chronic bilateral low back pain, unspecified whether sciatica present; Sacroiliitis; Lumbar post-laminectomy syndrome Discharge Disposition: Discharge to home or self care from Last 3 Months Allergies No known active allergies Medications FLUoxetine (PROzac) 20 mg capsule Take 1 capsule (20 mg total) by mouth daily Active simvastatin (ZOCOR) 40 mg tablet Take 1 tablet (40 mg total) by mouth nightly Active pantoprazole DR (PROTONIX) 40 mg EC tablet Take 1 tablet (40 mg total) by mouth daily Active metoprolol XL (TOPROL-XL) 50 mg 24 hr tablet Take 1 tablet (50 mg total) by mouth daily Active cetirizine (ZyrTEC) 10 mg chewable tablet Take 1 tablet (10 mg total) by mouth daily Active allopurinoL (ZYLOPRIM) 300 mg tablet Take 1 tablet (300 mg total) by mouth daily 3 Active ibuprofen 200 mg tab/cap Take 2 tablet/capsule (400 mg total) by mouth every 6 (six) hours as needed Active metFORMIN (GLUCOPHAGE) 500 mg tablet Take 1 tablet (500 mg total) by mouth daily 3 Active fluticasone propionate (FLONASE) 50 mcg/actuation nasal spray Administer 1 spray into each nostril daily Active glimepiride (AMARYL) 2 mg tablet Take 1 tablet (2 mg total) by mouth daily Active losartan-hydroc hlorothiazide (HYZAAR) 100-25 mg per tablet Take 1 tablet by mouth once daily 90 tablet 3 4 Active Active Problems Problem Noted Date Diagnosed Date Lumbar post-laminectomy syndrome 01/18/2025 Sacroiliitis 01/18/2025 Osteoarthritis 10/03/2024 Sensorineural hearing loss, bilateral 10/03/2024 Chronic right shoulder pain 05/22/2024 Cervical radiculopathy 05/22/2024 Cervical spinal stenosis 05/22/2024 Degenerative arthritis of right shoulder region 05/22/2024 Hearing loss 02/22/2024 Pain in joint involving ankle and foot 4 Shortness of breath 04/02/2023 Assessment & Plan (10/13/2024 8:31 AM NETWORK SYSTEMS ANALYST): Cardiac evaluation is negative. BNP within normal limits. Echocardiography and stress testing are unrevealing. Suspect a component of age, deconditioning, and obesity. Assessment & Plan (04/02/2023 1:30 PM CDT): Mechanism unclear but there is no evidence to support a diagnosis of systolic or diastolic heart failure. Serial echocardiograms over the years have demonstrated stage I diastolic dysfunction. The classic teaching with stage I diastolic dysfunction is that it does not lead to an elevated left atrial pressure and hence should not contribute to dyspnea. Furthermore a recent BNP was only 57. The combination of these findings strongly suggest his symptoms are not due to pulmonary edema. His dyspnea might be the result of ischemic heart disease as there are segmental wall motion abnormalities on his echocardiogram. Will obtain a Lexiscan stress test. Will also offer him a trial of a diuretic. Have prescribed Lasix 40 mg for 7 days. If his dyspnea improves with this than it is conceivable that either his echocardiogram and or his BNP have been misleading. COPD (chronic obstructive pulmonary disease) 03/30/2023 Overview (03/30/2023): cpap takes care of it Right upper quadrant abdominal pain 07/08/2017 Non morbid obesity due to excess calories 2016 History of total knee replacement 04/01/2016 03/30/2023 Acute kidney failure 08/26/2015 03/30/2023 Essential hypertension 08/26/2015 Assessment & Plan (10/13/2024 8:31 AM NETWORK SYSTEMS ANALYST): Well controlled. Continue Hyzaar and metoprolol. Assessment & Plan (04/02/2023 1:33 PM CDT): Modestly elevated today. Unclear if his blood pressure is elevated at home. Have advised him to check his blood pressure twice a day and record those results. Will obtain those readings when we share the results of his stress test. His conceivable that his dyspnea is due to hypertension. Obstructive sleep apnea 08/26/2015 03/30/20 23 Closed fracture of radius and ulna 04/29/2015 03/30/2023 Immunizations Immunization Administration Dates Next Due Influenza, Quadrivalent, Hig h Dose, Preservative Free, Intrr 09/04/2022 Influenza, Quadrivalent, Rec ombinant, Egg Free, Preservative Free, Intramuscular 07/28/2021,08/11/2019,09/01/2018 Influenza, Quadrivalent, Spl it, Preservative Free, Intramuscular 07/17/2015 Influenza, Unspecified 08/12/2014,2012,07/09/2012,09/07,08/19/2010,08/14/2009 Pneumococcal Conjugate PCV 13 02/14/2015 Pneumococcal Conjugate Pcv20 02/15/2023 Pneumococcal Polysaccharide PPV23 07/24/2020 Tdap 08/07/2021,02/10/2020,11/08/2005 ZOSTER LIVE 03/16/2012 ZOSTER Recombinant 02/15/2023,12/18/2022 Social History Tobacco Use Types Packs/Day Years Used Date Smoking Tobacco: Never Smokeless Tobacco: Never Tobacco Cessation:Counseling Given: Not Answered Alcohol Use Standard Drinks/Week Comments No 0 (1 standard drink = 0.6 oz pur e alcohol) AUDIT-C Answer Date Recorded Q1: How often do you have a drink containing alcohol? Monthly or less 05/22/2024 Q2: How many drinks containi ng alcohol do you have on a typical day when you are drinking? Patient does not drink Q3: How often do you have si x or more drinks on one occasion? Never 05/22/2024 Sex and Gender Information Value Date Recorded Sex Assigned at Not on file Legal Sex Male 8:24 PM NETWORK SYSTEMS ANALYST Gender Identity Not on file Sexual Orientation Not on file Occupation Industry Job Start Date Job End Date Retired Not on file Not on file Not on file Last Filed Vital Signs Vital Sign Reading Time Taken Comments Blood Pressure 138/67 01/18/2025 7:54 AM CDT Pulse 82 01/18/2025 7:54 AM CDT Temperature 36.4 C (97.5 F) 06/21/2024 2:51 PM CDT Respiratory Rate 16 01/18/2025 7:54 AM CDT Oxygen Saturation 96% 01/18/2025 7:54 AM CDT Inhaled Oxygen Concentration - - Weight 130.6 kg (288 lb) 10/13/2024 8:02 AM NETWORK SYSTEMS ANALYST Height 177.8 cm (5' 10 ) 10/13/2024 8:02 AM NETWORK SYSTEMS ANALYST Body Mass Index 41.32 10/13/2024 8:02 AM NETWORK SYSTEMS ANALYST Plan of Treatment Not on file Insurance [facility] Member Subscriber Plan / Payer (Ef fective 2015-Present) Name:Hi Whaley Relation to Subscriber:Self Name:Hi Whaley Payer ID:[id number] ([facility]) Type: OTHER Address: [address] [place] [address] MEDICARE MEDICARE FOR[facility]LY [facility] MEDICARE [facility] MEDICARE SUPPLEMENT Advance Directives For more information, please contact: [phone] Documents on File Type Date Recorded Patient Animal Husbandry Professor Expl anation ADVANCE DIRECTIVE 01/27/2023 11:09 AM [employer] SPECIAL EDUCATION TEACHER-MEDICAL Care Teams Business Solutions Architect Relationship Specialty Start Date End Date Ariana Toth MD [address] [place] [address] [place] [address] PCP - General Family Medicine 07/27/24 Dona Alvarez MD [address] [place] [address] Epic Cupid Analyst Family Medicine 07/08/17 [place] [phone] [address] Nurse Practitioner Pain Management 07/12/24
--- OUTSIDE RECORDS SUMMARY | 2025-01-30 08:12 | XMS_ITS | CONTINUITY OF CARE DOCUMENT ---
Author Name markus aparicio Address Unknown Organization [facility] Address [address] [place] [address] Phone [phone] Care Team Providers Care Agronomy Professor Name Role Phone markus aparicio Unavailable Unavailable
--- OUTSIDE RECORDS SUMMARY | 2025-01-30 08:12 | XMS_ITS | Clinical Summary ---
Author Organization [facility] Address [address] [place] [address] Phone Care Team Providers Care Production Sanitizer Name Role Phone Unavailable Primary Care Provider Unavailabl e Social History Tobacco Use Types Packs/Day Years Used Date Smoking Tobacco: Never Assessed Sex and Gender Information Value Date Recorded Sex Assigned at Not on file Legal Sex Male 10:32 AM CDT Gender Identity Not on file Sexual Orientation Not on file Plan of Treatment Health Maintenance Due Date Last Done Comments DTAP/TDAP/TD VACCINES (1 - Tdap) 1969 PNEUMOCOCCAL VACCINE 50+ YEARS (1 of 2 - PCV) 03/17/19 67 ZOSTER VACCINE (1 of 2) 1998 RSV VACCINE (60+ or ) (1 - 1-dose 75+ series) 2023 INFLUENZA VACCINE (#1) 2024
--- OUTSIDE RECORDS SUMMARY | 2025-01-30 08:12 | XMS_ITS | Clinical Summary ---
Author Organization [facility] Address [address] [place] [address] Care Team Providers Care Wood Products Manufacturer Name Role Phone Ariana Toth MD Primary Care Provider [phone] Source Comments [facility],non-owned Affiliates and Associated Physician Practices is amultiple site organization consisting of ambulatory clinics and hospital sitesin [place], [place], [place] and [place]. This disclosure is being madepursuant to the Care Everywhere program and may not contain all information available regarding this patient. Last updated 18.[facility] [employer] Allergies Active Allergy Reactions Criticality Noted Date Comments Hydromorphone Nausea and/or Vomiting 03/26/2016 Medications * Be aware that medications may not be up to date on this document. Alwaysverify current medications with the patient. Medication Sig Dispensed Refills Start Date End Date Status pantoprazole EC (PROTONIX) 40 MG tablet Take 1 (one) tablet by mouth once daily Active cetirizine (ZYRTEC) 10 MG tablet Take 1 (one) tablet by mouth once daily Active simvastatin (ZOCOR) 40 MG tablet Take 1 (one) tablet by mouth at bedtime Active metoprolol succinate XL 24hr (TOPROL XL) 50 MG tablet Take 1 (one) tablet by mouth 2 times daily Active hydrALAZINE (APRESOLINE) 50 MG tablet Take 1 (one) tablet by mouth once daily Active FLUoxetine (PROZAC) 20 MG tablet Take 1 (one) tablet by mouth once daily Active ibuprofen (MOTRIN) 200 MG tablet Take 2 (two) tablets by mouth every 6 hours as needed for Pain Active diazePAM (VALIUM) 5 MG tabletIndications :Status post right knee replacement,Statu s post total left knee replacement,Sleep apnea, unspecified type,Essential hypertension,Chair Springer val obstructive pulmonary disease, unspecified COPD type (HCC),Obesity, unspecified obesity severity, unspecified obesity type Take 1 Tab by mouth 3 times daily as needed for Anxiety 08/07/2016 Active allopurinol (Zyloprim) 300 MG tablet Take 1 (one) tablet by mouth once daily 08/01/2023 Active losartan-hydroCHL OROthiazide (Hyzaar) 100-25 MG tablet Take 1 (one) tablet by mouth once daily 08/01/2023 Active metFORMIN (Glucophage) 500 MG tablet Take 1 (one) tablet by mouth 2 times daily 06/09/2023 Active Cholecalciferol (vitamin D3) 1.25 MG (00654 UT) capsule Take 1 (one) capsule by mouth every 7 days Active FLUoxetine (PROzac) 20 MG capsule Take 1 (one) capsule by mouth once daily 01/16/2024 Active glimepiride (Amaryl) 2 MG tablet Take 1 tablet by mouth once daily 50 tablet 01/01/2025 Active glimepiride (Amaryl) 2 MG tablet Take 1 (one) tablet by mouth once daily 100 tablet 4 08/24/2023 01/01/2025 Discontinued Active Problems Problem Noted Date Diagnosed Date Hearing loss 02/22/2024 02/22/2024 Osteoarthritis 02/22/2024 02/22/2024 Other and unspecified hyperlipidemia 02/22/2024 02/22/2024 Pain in joint involving ankle and foot 02/22/2024 Shortness of breath 04/02/2023 02/22/2024 Overview (02/22/2024): Last Assessment & Plan: Mechanism unclear but there is no evidence [...] and or his BNP have been misleading. Right upper quadrant abdominal pain 07/08/2017 02/22/2024 Non morbid obesity due to excess calories 201602/22/2024 Status post total left knee replacement 04/01/20 History of total knee replacement 04/01/2016 Obstructive sleep apnea 08/26/2015 Primary hypertension 08/26/2015 Overview (02/22/2024): Last Assessment & Plan: Modestly elevated today. Unclear if his blood pressure is elevated at home. Have advised him to check his blood pressure twice a day and record those results. Will obtain those readings when we share the results of his stress test. His conceivable that his dyspnea is due to hypertension. Acute kidney failure 08/26/2015 02/22/2024 Closed fracture of radius and ulna 04/29/2015 02/22/2024 COPD (chronic obstructive pulmonary disease) Overview (04/01/2016): cpap takes care of it Obesity Encounters Date Type Department Care Team Description 12/31/2024 Refill [facility] - Endocrinology [address] [place] [phone] Yonatan Carpenter MD Refill Request from Last 3 Months Social History Tobacco Use Types Packs/Day Years Used Date Smoking Tobacco: Never Smokeless Tobacco: Never Tobacco Cessation:Counseling Given: Yes Alcohol Use Standard Drinks/Week Comments Yes 1 (1 standard drink = 0.6 oz pur e alcohol) very little PHQ-2 Answer Date Recorded Patient Health Questionnaire-2 Score 0 09/01/2024 Sex and Gender Information Value Date Recorded Sex Assigned at Not on file Gender Identity Not on file Sexual Orientation Not on file Last Filed Vital Signs Vital Sign Reading Time Taken Comments Blood Pressure 126/74 09/01/2024 9:55 AM CDT Pulse 66 09/01/2024 9:55 AM CDT Temperature 36.6 C (97.9 F) 08/09/2016 11:20 AM CDT Respiratory Rate 18 08/09/2016 11:2 0 AM CDT Oxygen Saturation 96% 09/01/2024 9:55 AM CDT Inhaled Oxygen Concentration - - Weight 130.3 kg (287 lb 3.2 oz) 09/01/2024 9:55 AM CDT Height 177.8 cm (5' 10 ) 09/01/2024 9:55 AM CDT Body Mass Index 41.21 09/01/2024 9:55 AM CDT Plan of Treatment Upcoming Encounters Date Type Department Care Team (Late st Contact Info) Description 03/16/2025 10:15 AM CDT Office Visit [facility] - Endocrinology [address] [place] [phone] Yonatan Carpenter MD [address] [place] [address] [address] [place] [address] Health Maintenance Due Date Last Done Comments MEDICARE AWV 12 MONTHS 1950 HEPATITIS C SCREENING 03/13/1966 DTAP/TDAP/TD VACCINES (1 - Tdap) 1967 PNEUMOCOCCAL VACCINE 50+ (1 of 2 - PCV) 1967 ZOSTER VACCINE (1 of 2) 1998 Respiratory Syncytial Virus (RSV) Vaccine Pt: or over 60 yrs (1 - 1-dose 75+ series) 2023 COVID-19 VACCINE ( - season) 2024 INFLUENZA VACCINE (#1) 2024 1, 08/11/2019, 09/01/2018, Additional history exists DEPRESSION SCREENING 11/08/2024 09/01/2024 HEPATITIS B VACCINE Aged Out No longe r eligible based on patient's age to complete this topic HIB VACCINE Aged Out No longer eligi ble based on patient's age to complete this topic HPV VACCINE Aged Out No longer eligi ble based on patient's age to complete this topic MENINGOCOCCAL (Group B) VACCINE SHARED DECISION-MAKING Aged Out No longer eligible based on patient's age to complete this topic MENINGOCOCCAL GROUPS A/C/Y/W VACCINE Aged Out No longer eligible based on patient's age to complete this topic Medical Devices Implanted Type Area Document Design Specialist Device Identifier Shelf Expiration Date Model / Serial / Lot Layo Bone Palacos Rg Implanted:Qty: 2 on 04/01/2016 by Maxim Lucio MD at [facility] Left: Knee [employer] 05/07/2019 [id number] / / [id number] Ins Kn Vangurd Fem Cocr L-Intlok 70.0mm Implanted:Qty: 1 on 04/01/2016 by Maxim Lucio MD at [facility] Left: Knee [employer] 12/13/2025 [id number] / / [id number] Ty Tibial Maxim 79mm Implanted:Qty: 1 on 04/01/2016 by Maxim Lucio MD at [facility] Left: Knee [employer] 01/26/2026 [id number] / / [id number] Implt Pat Ser A 3-Peg Std 37mm Implanted:Qty: 1 on 04/01/2016 by Maxim Lucio MD at [facility] Left: Knee [employer] 11/27/2020 [id number] / / [id number] As Tibial Bearing Implanted:Qty: 1 on 04/01/2016 by Maxim Lucio MD at [facility] Left: Knee [employer] 01/12/2021 [id number] / / [id number] Implt Tibial Bear Ant Stab 12mm X 79mm Implanted:Qty: 1 on 08/05/2016 by Maxim Lucio MD at [facility] Right: Knee [employer] 04/03/2021 [id number] / / [id number] Layo Bone Palacos Rg Implanted:Qty: 2 on 08/05/2016 by Maxim Lucio MD at [facility] Right: Knee [employer] 01/06/2020 [id number] / / [id number] Ty Tibial Maxim 79mm Implanted:Qty: 1 on 08/05/2016 by Maxim Lucio MD at [facility] Right: Knee [employer] 03/12/2026 [id number] / / [id number] Ins Kn Vangurd Fem Cocr R-Intlok 70mm Implanted:Qty: 1 on 08/05/2016 by Maxim Lucio MD at [facility] Right: Knee [employer] 12/08/2024 [id number] / / [id number] Implt Pat Ser A 3-Peg Std 37mm Implanted:Qty: 1 on 08/05/2016 by Maxim Lucio MD at [facility] Right: Knee [employer] 02/11/2021 [id number] / / [id number] Advance Directives Documents on File Type Date Recorded Patient 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
--- OUTSIDE RECORDS SUMMARY | 2025-01-30 08:12 | XMS_ITS | Clinical Summary ---
Author Organization [address] Address [address] [place] [address] Care Team Providers Care Medical I D Sales Name Role Phone Dona Alvarez MD Unavailable Raudel Branch NP Unavailable [phone] Ariana Toth MD Primary Care Provider + Allergies No known active allergies Medications FLUoxetine [...] Pain in joint involving ankle and foot Shortness of breath 04/02/2023 Assessment & Plan (10/13/2024 8:31 AM KAIAWHINA KOHANGA REO): Cardiac evaluation is negative. BNP within normal [...] 08/26/2015 Assessment & Plan (10/13/2024 8:31 AM KAIAWHINA KOHANGA REO): Well controlled. Continue Hyzaar and metoprolol. Assessment [...] fracture of radius and ulna 04/29/2015 03/30/2023 Encounters Date Type Department Care Team Description 01/18/2025 7:18 AM CDT - 01/18/2025 11:59 PM CDT Hospital Encounter [facility] [address] [place] [address] Raudel Branch, JORDAN Cervical spinal stenosis (Primary Dx); Chronic bilateral low back pain, unspecified whether sciatica present; Sacroiliitis; Lumbar post-laminectomy syndrome Discharge Disposition: Discharge to home or self care from Last 3 Months Immunizations Immunization Administration Dates Next Due Influenza, Quadrivalent, Hig h Dose, Preservative Free, Intrr 09/04/2022 Influenza, Quadrivalent, Rec ombinant, Egg Free, Preservative Free, Intramuscular 07/28/2021,08/11/2019,09/01/2018 Influenza, Quadrivalent, Spl it, Preservative Free, Intramuscular 07/17/2015 Influenza, Unspecified 08/12/2014,2012,07/09/2012,09/07,08/19/2010,08/14/2009 Pneumococcal Conjugate PCV 13 02/14/2015 Pneumococcal Conjugate Pcv20 02/15/2023 Pneumococcal Polysaccharide PPV23 07/24/2020 Tdap 08/07/2021,02/10/2020,11/08/2005 ZOSTER LIVE 03/16/2012 ZOSTER Recombinant 02/15/2023,12/18/2022 Surgical History Surgery Date Site/Laterality Comments TOTAL KNEE ARTHROPLASTY Bilateral Medical History Medical History Date Comments Kidney stones Depression Hypertension Social History Tobacco Use Types Packs/Day Years [...] on file Legal Sex Male 8:24 PM KAIAWHINA KOHANGA REO Gender Identity Not on file Sexual Orientation Not on file Occupation Industry Job Start Date Job End Date Retired Not on file Not on file Not on file Obstetrics History Last Filed Vital Signs Vital Sign Reading Time Taken Comments Blood Pressure 138/67 01/18/2025 7:54 AM CDT Pulse 82 01/18/2025 7:54 AM CDT Temperature 36.4 C (97.5 F) 06/21/2024 2:51 PM CDT Respiratory Rate 16 01/18/2025 7:54 AM CDT Oxygen Saturation 96% 01/18/2025 7:54 AM CDT Inhaled Oxygen Concentration - - Weight 130.6 kg (288 lb) 10/13/2024 8:02 AM KAIAWHINA KOHANGA REO Height 177.8 cm (5' 10 ) 10/13/2024 8:02 AM KAIAWHINA KOHANGA REO Body Mass Index 41.32 10/13/2024 8:02 AM KAIAWHINA KOHANGA REO Plan of Treatment Health Maintenance Due Date Last Done Comments Depression Screening 1950 Hepatitis C Screening 1950 Hepatitis B Screening 1966 Well Visit 65+ 2013 Covid-19 Vaccine (2023-2 5 season) 2024 08/08/2022, 05/29/2022, 09/16/2021, Additional history exists Influenza Vaccine (#1) 2024 2, 07/28/2021, 08/11/2019, Additional history exists Fall Risk Assessment 01/18/2026 01/18/2025 DTaP/Tdap/Td Vaccine (4 - Td or Tdap) 08/07/2031 08/07/2021, 02/10/2020, 11/08/2005 Pneumococcal vaccine 65+ Completed 023, 07/24/2020, 02/14/2015 Zoster Vaccine Completed 02/15/2023, 12/09, 03/16/2012 Insurance [facility] MEDICARE MEDICARE [facility] MEDICARE BLUE CROSS MEDICARE SUPPLEMENT Advance Directives For more information, please contact: [phone] Documents on File Type Date Recorded Patient Foster Winder Expl anation ADVANCE DIRECTIVE 01/27/2023 11:09 AM ALEXANDRA Montgomery OF [employer] Care Teams Medical I D Sales Relationship Specialty Start Date End Date Ariana Toth MD [address] [facility] [place] [address] PCP - General Family Medicine 07/27/24 Dona Alvarez MD [address] [place] [address] [employer]iscuit Packer Family Medicine 07/08/17 [place] [address] [address] [facility] [address] [place] [address] Nurse Practitioner Pain Management 07/12/24
[2025-01-30 16:19] LABS: Kit Draw Collected
== END 2025-01-30 08:03 | disposition home or self-care (01) ==
LOC: ANHGOSHLAB 08:03
PROVIDERS: PCP Family Medicine; Visit Provider Family Medicine
DX: E11.9 Type 2 diabetes mellitus without complications (principal); M10.9 Gout, unspecified; D69.6 Thrombocytopenia, unspecified; Z11.59 Encounter for screening for other viral diseases
CPT/HCPCS: 36415

== ENCOUNTER 2025-05-15 08:30 | Outpatient (CLI) | payer MEDICARE, SELFPAY ==
--- OUTSIDE RECORDS SUMMARY | 2025-05-15 08:36 | XMS_ITS | Clinical Summary ---
Author Organization [facility] Ariana albrecht Address [address] [address] Phone Care Team Providers Care Screen Maker Name Role Phone Unavailable Primary Care Provider [...] at Not on file Legal Sex Male 9:28 AM MST Gender Identity Not on file Sexual Orientation [...] 12:01 AM CDT Height 180.3 cm (5' 11) 08/26/2015 12:01 AM CDT Body Mass Index 39.05 08/26/2015 12:01 AM CDT Plan of Treatment Not on file
--- OUTSIDE RECORDS SUMMARY | 2025-05-15 08:36 | XMS_ITS | Encounter Summary ---
Author Organization [facility] Address [address] [place] [address] Care Team Providers Care Filling And Packing Supervisor Name Role Phone Ariana Toth MD Primary Care Provider [phone] Reason for Visit * Reason Comments Refill Request Encounter Details Date Type Department Care Team (Late st Contact Info) Description 05/13/2025 Refill [facility] - Endocrinology [address] [place] [phone] Yonatan Carpenter MD [address] [facility] [address] [place] [address] Refill Request Social History Tobacco Use Types Packs/Day Years Used Date Smoking Tobacco: Never Smokeless Tobacco: Never Alcohol Use Standard Drinks/Week Comments Yes 1 (1 standard drink = 0.6 oz pur e alcohol) very little PHQ-2 Answer Date Recorded Patient Health Questionnaire-2 Score 0 09/01/2024 Sex and Gender Information Value Date Recorded Sex Assigned at Not on file Legal Sex Male 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 Answer Date of Assessment Author Yes 08/05/2016 12:33 PM Chinyere Harper RN * Is person blind or have serious difficulty seeing? Answer Date of Assessment Author No 08/05/2016 12:33 PM CDT Chinyere Boogie RN * Does person have serious difficulty walking/climbing stairs? Answer Date of Assessment Author Yes 08/05/2016 12:33 PM CDT Chinyere Boogie RN * Does person have difficulty dressing/bathing? Answer Date of Assessment Author No 08/05/2016 12:33 PM CDT Chinyere Boogie RN * Does person have difficulty doing errands alone? Answer Date of Assessment Author No 08/05/2016 12:33 PM CDT Chinyere Boogie RN documented as of this encounter Mental Status * Does person have difficulty concentrating/remembering/making decisions? Answer Entry Date Author No 08/05/2016 12:33 PM CDT Chinyere Boogie RN documented in this encounter Miscellaneous Notes * Telephone Encounter - Areli Tafoya RN - 05/14/2025 1:49 PM CDT Images from the original note were not included. ADULT MED REFILL PROTOCOL [id number]/13/2025 12:17 PM Protocol Details Recent or Future Visit with Authorizing Provider or Department Hemoglobin A1C result exists in past 6 months. OK to refill if abnormal Refill Request Last visit: 09-01-24 Future appointment date: Provider Department Center 07/03/2025 2:45 PM Yonatan Carpenter [facility] - Endocrinology documented in this encounter Plan of Treatment Upcoming Encounters Date Type Department Care Team (Late st Contact Info) Description 07/03/2025 2:45 PM CDT Office Visit [facility] - Endocrinology [address] [place] [phone] Yonatan Carpenter MD [address] [facility] [address] [place] [address] documented as of this encounter Visit Diagnoses Diagnosis Type 2 diabetes mellitus without complication, without long-term current use of insulin (HCC) documented in this encounter Care Teams Filling And Packing Supervisor Relationship Specialty Start Date End Date Ariana Toth MD [address] [place] [address] PCP - General Family Medicine 09/01/24 documented as of this encounter
--- OUTSIDE RECORDS SUMMARY | 2025-05-15 08:36 | XMS_ITS ---
Author Name Auto Generated, Auto Generated Organization [facility] ices Address [address] [place] [address] Phone [phone] Care Team Providers Care Instructor Of Spanish Name Role Phone Cuauhtemoc Garcia Functional Status No Results Mental Status No Results Allergies and Intolerances Name Onset Date Reaction Severity Dilaudid (Allergy) WedAug 09 18:36:00 EDT 2015 Medications Medication Directions Start Date End Date lisinopril 20 mg tablet 20mg TABLET Oral 1 Time Daily [facility] Aug 15 09:00:00 EDT 2015Aug 17 01:00:00 EDT 2015 oxyCODONE-acetaminophen 5 mg-325 mg tablet 2 tabs TABLET Oral Every 4 Hours Per Serenity CLASP MACHINE OPERATOR at Dr. Lucio's office. WedAug 13 15:00:00 EDT 2015Aug 17:00:00 EDT 2015 omeprazole 20 mg capsule,delayed release 20 mg Oral 1 Time Daily dx: gerd WedAug 13 18:00:00 EDT 2015Aug 17 01:00:00 EDT 2015 melatonin 5 mg tablet 5mg TABLET Oral SD N 1 Time Daily prn hs for insomnia. may give another 5mg 30 minutes later if still awake [facility] Aug 13 22:00:00 EDT 2015Aug 17 01:00:00 EDT 2015 Eliquis 2.5 mg tablet 2.5mg TABLET Oral 2 Times Daily for 12 Days WedAug 09 21:00:00 EDT 2015Aug 17:00:00 EDT 2015 diazePAM 5 mg tablet 5 mg 5mg TABLET Ora l PRN 3 Times Daily for anxiety WedAug 09 21:00:00 EDT 2015Aug 17 01:00:00 EDT 2015 morphine ER 15 mg tablet,extended release 15mg TABLET, EXTENDED RELEASE Oral Every 12 Hours WedAug 09:00:00 ED2015Aug 17 01:00:00 EDT 2015 Percocet 5 mg-325 mg tablet 1 tab TABLET Oral PRN Every 4 Hours WedAug 09:00:00 ED2015Aug 13 15:20:00 EDT 2015 Percocet 5 mg-325 mg tablet 2 tabs TABLET Oral PRN Every 4 Hours WedAug 09 21:00:00 ED2015Aug 13 15:20:00 EDT 2015 cetirizine 10 mg tablet 10mg TABLET Oral 1 Time Daily dx: allergies WedAug 09:00:00 EDT 2015Aug 17 01:00:00 EDT 2015 FLUoxetine 20 mg tablet 20mg TABLET Oral 1 Time Daily dx: depression WedAug 09:00:00 EDT 2015Aug 17 01:00:00 EDT 2015 hydrALAZINE 50 mg tablet 50mg TABLET Ora l 1 Time Daily WedAug 09 21:00:00 EDT 2015Aug 17 01:00:00 EDT 2016 ibuprofen 200 mg tablet 400mg TABLET Ora l PRN Every 6 Hours dx: pain WedAug 09:00:00 EDT 2015Aug 17 01:00:00 EDT 2015 metoprolol succinate ER 50 mg tablet,extended release 24 hr 50mg TABLET, EXTENDED RELEASE 24 HR Oral 2 Times Daily WedAug 09:00:00 EDT 2015Aug 17 01:00:00 EDT 2015 pantoprazole 40 mg tablet,delayed release 40mg TABLET, DELAYED RELEASE (ENTERIC COATED) Oral 1 Time Daily dx: gerd WedAug 09 21:00:00 EDT 2015Aug 13 17:18:00 EDT 2015 simvastatin 40 mg tablet 40mg TABLET Ora l 1 Time Daily WedAug 09:00:00 EDT 2015Aug 17 01:00:00 EDT 2016 Problems Active Concerns * Encounter for other orthopedic aftercare* Code: * Start Date: WedApril 05:00:00 EDT 2015 * End Date: * Text: * Presence of left artificial knee joint* Code: * Start Date: WedApril 05 00:00:00 EDT 2015 * End Date: * Text: * Osteoarthritis of knee, unspecified* Code: * Start Date: WedApril 05 00:00:00 EDT 2015 * End Date: * Text: * Chronic obstructive pulmonary disease, unspecified* Code: * Start Date: WedApril 05 00:00:00 ED2015 * End Date: * Text: * Sleep apnea, unspecified* Code: * Start Date: WedApril 05 00:00:00 ED2015 * End Date: * Text: * Dependence on other enabling machines and devices* Code: * Start Date: WedApril 05 00:00:00 ED2015 * End Date: * Text: * Essential (primary) hypertension* Code: * Start Date: WedApril 05 00:00:00 EDT 2015 * End Date: * Text: * Obesity, unspecified* Code: * Start Date: WedApril 05 00:00:00 EDT 2015 * End Date: * Text: * Difficulty in walking, not elsewhere classified* Code: * Start Date: WedApril 05 00:00:00 ED2015 * End Date: * Text: * Muscle weakness (generalized)* Code: * Start Date: WedApril 05 00:00:00 ED2015 * End Date: * Text: * Aftercare following joint replacement surgery* Code: * Start Date: WedAug 09 00:00:00 ED2015 * End Date: * Text: * Presence of right artificial knee joint* Code: * Start Date: WedAug 09 00:00:00 EDT 2015 * End Date: * Text: Reason for Referral Past Medical History
--- OUTSIDE RECORDS SUMMARY | 2025-05-15 08:36 | XMS_ITS | Clinical Summary ---
Author Organization [facility] Address [address] [place] [address] Care Team Providers Care Booth Usher Name Role Phone Ariana Toth MD Primary Care Provider [phone] Source Comments [facility],non-owned Affiliates and Associated Physician Practices is amultiple site organization consisting of ambulatory clinics and hospital sitesin [place], [place], [place] and [place]. This disclosure is being madepursuant to the Care Everywhere program and may not contain all information available regarding this patient. Last updated 18.[facility] [employer] Allergies Active Allergy Reactions Criticality Noted Date Comments Hydromorphone Nausea and/or Vomiting 03/26/2016 Medications * Be aware that medications may not be up to date on this document. Alwaysverify current medications with the patient. pantoprazole EC (PROTONIX) 40 MG tablet Take [...] for Pain Active diazePAM (VALIUM) 5 MG tabletIndicatio ns:Status post right knee replacement,Sta tus post total left knee replacement,Sle ep apnea, unspecified type,Essential hypertension,Ch ronic obstructive pulmonary disease, unspecified COPD type (HCC),Obesity, unspecified obesity severity, unspecified obesity type Take 1 Tab by mouth 3 times daily as needed for Anxiety 6 Active allopurinol (Zyloprim) 300 MG tablet Take 1 (one) tablet by mouth once daily 3 Active losartan-hydroC HLOROthiazide (Hyzaar) 100-25 MG tablet Take 1 (one) tablet by mouth once daily 3 Active metFORMIN (Glucophage) 500 MG tablet Take 1 (one) tablet by mouth 2 times daily 3 Active Cholecalciferol (vitamin D3) 1.25 MG (93680 UT) capsule Take 1 (one) capsule by mouth every 7 days Active FLUoxetine (PROzac) 20 MG capsule Take 1 (one) capsule by mouth once daily 4 Active glimepiride (Amaryl) 2 MG tabletIndicatio ns:Type 2 diabetes mellitus without complication, without long-term current use of insulin (HCC) Take 1 tablet by mouth once daily 90 tablet 5 Active glimepiride (Amaryl) 2 MG tabletIndicatio ns:Type 2 diabetes mellitus without complication, without long-term current use of insulin (HCC) Take 1 tablet by mouth once daily 60 tablet 1 5 025 Discontinued Active Problems Problem Noted Date Diagnosed Date Hearing loss 02/22/2024 02/22/2024 Osteoarthritis 02/22/2024 02/22/2024 Other and unspecified hyperlipidemia 02/22/2024 02/22/2024 Pain in joint involving ankle and foot 4 02/22/2024 Shortness of breath 04/02/2023 02/22/2024 Overview [...] Encounters Date Type Department Care Team Description 05/13/2025 Refill [facility] - Endocrinology [address] [place] [address] Yonatan Carpenter MD Refill Request from [...] on file Legal 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 Gender Identity Not on file Sexual Orientation [...] 9:55 AM CDT Height 177.8 cm (5' 10) 09/01/2024 9:55 AM CDT Body Mass Index 41.21 09/01/2024 9:55 AM CDT Plan of Treatment Upcoming Encounters Date Type Department Care Team (Late st Contact Info) Description 07/03/2025 2:45 PM CDT Office Visit [facility] - Endocrinology [address] [place] [phone] Yonaatn Carpenter MD [address] [place], [place] [address] [address] [place] [phone] Health Maintenance Due Date Last Done Comments MEDICARE AWV 12 MONTHS 1950 HEPATITIS C SCREENING 03/13/1966 DTAP/TDAP/TD VACCINES (1 - Tdap) 1967 PNEUMOCOCCAL VACCINE 50+ (1 of 2 - PCV) 1967 ZOSTER VACCINE (1 of 2) 1998 Respiratory Syncytial Virus (RSV) Vaccine Pt: or over 60 yrs (1 - 1-dose 75+ series) 2023 COVID-19 VACCINE (1 - season) 2024 DEPRESSION SCREENING 11/08/2024 09/01/2024 INFLUENZA VACCINE (#1) 2025 , 08/11/2019, 09/01/2018, Additional history exists HEPATITIS B VACCINE Aged Out No longe [...] this topic Medical Devices Implanted Type Area Configuration Management Specialist Device Identifier Shelf Expiration Date Model / Serial / Lot Layo Bone Palacos Rg Implanted:Qty: 2 on 04/01/2016 by Maxim Lucio MD at [facility] Left: Knee [employer] 05/07/2019 [id number] / / [id number] Ins Kn Vangurd Fem Cocr L-Intlok 70.0mm Implanted:Qty: 1 on 04/01/2016 by Maxim Lucio MD at [facility] Left: Knee [employer] 12/13/2025 [id number] / / [id number] Ty Tibial Maxim 79mm Implanted:Qty: 1 on 04/01/2016 by Maxim Lucio MD at [facility] Left: Knee [employer] 01/26/2026 [id number] / / [id number] Implt Pat Ser A 3-Peg Std 37mm Implanted:Qty: 1 on 04/01/2016 by Maxim Lucio MD at [facility] Left: Knee [employer] 11/27/2020 [id number] / / [id number] As Tibial Bearing Implanted:Qty: 1 on 04/01/2016 by Maxim Lucio MD at [facility] Left: Knee [employer] 01/12/2021 [id number] / / [id number] Implt Tibial Bear Ant Stab 12mm X 79mm Implanted:Qty: 1 on 08/05/2016 by Maxim Lucio MD at [facility] Right: Knee [employer] 04/03/2021 [id number] / / [id number] Layo Bone Palacos Rg Implanted:Qty: 2 on 08/05/2016 by Maxim Lucio MD at [facility] Right: Knee [employer] 01/06/2020 [id number] / / [id number] Ty Tibial Maxim 79mm Implanted:Qty: 1 on 08/05/2016 by Maxim Lucio MD at [facility] Right: Knee [employer] 03/12/2026 [id number] / / [id number] Ins Kn Vangurd Fem Cocr R-Intlok 70mm Implanted:Qty: 1 on 08/05/2016 by Maxim Lucio MD at [facility] Right: Knee [employer] 12/08/2024 [id number] / / [id number] Implt Pat Ser A 3-Peg Std 37mm Implanted:Qty: 1 on 08/05/2016 by Maxim Lucio MD at [facility] Right: Knee [employer] 02/11/2021 [id number] / / [id number] Insurance MEDICARE [facility] Advance Directives Documents on File Type Date Recorded 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
--- OUTSIDE RECORDS SUMMARY | 2025-05-15 08:36 | XMS_ITS ---
Author Name Auto Generated, Auto Generated Organization [employer] [facility] ice Address [address] [place] [address] Phone [phone] Care Team Providers Care Seed District Sales Manager Name Role Phone Cuauhtemoc Garcia Unavailable [phone] Functional Status Mental Status Allergies and Intolerances Medications Problems Reason for Referral Past Medical History
--- OUTSIDE RECORDS SUMMARY | 2025-05-15 08:36 | XMS_ITS | Clinical Summary ---
Author Organization [facility] Address [address] [place] [address] Phone Care Team Providers Care Tractor Operator Name Role Phone Unavailable Primary Care Provider [...] 1-dose 75+ series) 2023 INFLUENZA VACCINE (#1) 2025
--- OUTSIDE RECORDS SUMMARY | 2025-05-15 08:36 | XMS_ITS | Clinical Summary ---
Author Organization [address] Address [address] [place] [id number] Care Team Providers Care Orchid Transplanter Name Role Phone Dona Alvarez MD Unavailable Raudel Branch NP Unavailable [phone] Ariana Toth MD Primary Care Provider [...] Active Problems Problem Noted Date Diagnosed Date Spinal stenosis of lumbar re gion without neurogenic claudication 02/13/2025 Lumbar post-laminectomy syndrome 01/18/2025 Sacroiliitis 01/18/2025 Osteoarthritis 10/03/2024 Sensorineural hearing loss, bilateral 10/03/2024 Chronic right shoulder pain 05/22/2024 Cervical radiculopathy 05/22/2024 Cervical spinal stenosis 05/22/2024 Degenerative arthritis of right shoulder region 05/22/2024 Hearing loss 02/22/2024 Pain in joint involving ankle and foot Shortness of breath 04/02/2023 Assessment & Plan (10/13/2024 8:31 AM MANAGER CULTURE): Cardiac evaluation is negative. BNP within normal [...] 08/26/2015 Assessment & Plan (10/13/2024 8:31 AM MANAGER CULTURE): Well controlled. Continue Hyzaar and metoprolol. Assessment [...] to hypertension. Obstructive sleep apnea 08/26/2015 03/30/20 Closed fracture of radius and ulna 04/29/2015 03/30/2023 Encounters Date Type Department Care Team Description 03/08/2025 7:59 AM CDT - 03/08/2025 11:59 PM CDT Hospital Encounter [facility] [address] [place] [id number] Raudel Branch NP Sacroiliitis (Primary Dx) Discharge Disposition: Discharge to home or self care 02/22/2025 2:32 PM CDT - 02/22/2025 11:59 PM CDT Hospital Encounter [facility] [address] [place] [phone] Luan Hernandez MD Sacroiliitis Discharge Disposition: Discharge to home or self care 02/13/2025 7:10 AM CDT - 02/13/2025 11:59 PM CDT Hospital Encounter [facility] [address] [place] [id number] Raudel Branch NP Sacroiliitis (Primary Dx); Lumbar post-laminectomy syndrome; Spinal stenosis of lumbar region without neurogenic claudication Discharge Disposition: Discharge to home or self care 02/13/2025 Telephone [facility] [address] [place] [id number] Janette Falcon Med Management (T#3) from Last 3 Months Immunizations Immunization Administration [...] on file Legal Sex Male 8:24 PM MANAGER CULTURE Gender Identity Not on file Sexual Orientation Not on file Occupation Industry Job Start Date Job End Date Retired Not on file Not on file Not on file Obstetrics History Last Filed Vital Signs Vital Sign Reading Time Taken Comments Blood Pressure 148/75 03/08/2025 8:22 AM CDT Pulse 70 03/08/2025 8:22 AM CDT Temperature 36.7 C (98.1 F) 02/22/2025 2:55 PM CDT Respiratory Rate 16 03/08/2025 8:22 AM CDT Oxygen Saturation 98% 03/08/2025 8:22 AM CDT Inhaled Oxygen Concentration - - Weight 130.6 kg (288 lb) 02/03/2025 7:24 AM CDT Height 177.8 cm (5' 10) 02/03/2025 7:24 AM CDT Body Mass Index 41.32 02/03/2025 7:24 AM CDT Plan of Treatment Health Maintenance Due Date Last Done Comments Depression Screening 1950 Hepatitis C Screening 1950 Hepatitis B Screening 1966 Well Visit 65+ 2013 Covid-19 Vaccine (2023- 5 season) 2024 08/08/2022, 05/29/2022, 09/16/2021, Additional history exists Influenza Vaccine (#1) 2025 , 07/28/2021, 08/11/2019, Additional history exists Fall Risk Assessment 03/08/2026 03/08/2025 DTaP/Tdap/Td Vaccine (4 - Td or Tdap) 08/07/2031 08/07/2021, 02/10/2020, 11/08/2005 Pneumococcal vaccine 65+ Completed 023, 07/24/2020, 02/14/2015 Zoster Vaccine Completed 02/15/2023, 12/09, 03/16/2012 Procedures Procedure Name Priority Date/Time Associated Diagnosis Comments PAIN MGMT IMAGING SI JOINT RIGHT Schedule Routine, Read Routine (OP Routine) 02/22/2025 3:41 PM CDT Sacroiliitis from Last 3 Months Results * Imaging SI Joint Injection Right (83092) (02/22/2025 3:41 PM CDT) Narrative RAD_PACS_CH - 02/22/2025 3:46 PM CDT The images from this study are not interpreted by Radiology. Please refer to the physician's procedure / OR operative note. us Raudel Branch NP IMG PAIN MGMT PROCEDURES Jannie l Result RAD_PACS_CH from Last 3 Months Insurance [facility] MED[facility] MEDICARE [facility] MEDICARE [facility] MEDICARE SUPPLEMENT Member Subscriber Plan / Payer (Ef fective 2015-Present) Name:Hi Whaley Relation to Subscriber:Self Name:Hi Whaley Payer ID:[id number] Type:COMMERCIAL Address: [address] [place] [id number] Advance Directives For more information, please contact: [phone] Documents on File Type Date Recorded Patient Tipple Boss Expl anation ADVANCE DIRECTIVE 01/27/2023 11:09 AM ALEXANDRA R OF COMMUNICATIONS PROGRAM MANAGER-MEDICAL Care Teams Orchid Transplanter Relationship Specialty Start Date End Date Ariana Toth MD [address] [place] [address] [place] [address] PCP - General Family Medicine 07/27/24 Dona Alvarez MD [address] [address] Brain Wave Technician Family Medicine 07/08/17 Raudel Branch, UNDERGROUND SUPERVISOR [id number] [address] [facility] [address] [place] [address] Nurse Practitioner Pain Management 07/12/24
--- OUTSIDE RECORDS SUMMARY | 2025-05-15 08:36 | XMS_ITS | Clinical Summary ---
Author Organization [facility] Address [address] [place] [phone] Care Team Providers Care Staff Software Engineer Name Role Phone Unavailable Primary Care Provider [...] Td Vaccines ( 1 - Tdap) 1967 Pneumococcal Vaccine: 50+ Ye ars (1 of 1 - PCV) 1998 Zoster Vaccines (1 of 2) 1998 RSV Immunization or 60+ Years (1 - 1-dose 75+ series) 2023 COVID-19 Vaccine ( - 2023-2 5 season) 2024 Meningococcal B Vaccine Aged Out No l onger eligible based on patient's age to complete this topic Meningococcal Vaccine Aged Out No chantelle jasmin eligible based on patient's age to complete this topic RSV Immunizations Under 20 Months Aged Out No longer eligible based on patient's age to complete this topic Insurance [facility]
--- OUTSIDE RECORDS SUMMARY | 2025-05-15 08:36 | XMS_ITS | Referral Summary ---
Author Organization [facility] [address] [facility] [address] Address [address] [place] [phone] Care Team Providers Care Department Of Natural Resources Officer Name Role Phone Dona Alvarez MD Unavailable Raudel Branch WOOD SCRAP HANDLER Unavailable [phone] Ariana Toth MD Primary Care Provider + Encounters Date Type Department Care Team Description 03/08/2025 7:59 AM CDT - 03/08/2025 11:59 PM CDT Hospital Encounter [facility] [address] [place] [id number] Raudel Branch NP Sacroiliitis (Primary Dx) Discharge Disposition: Discharge to home or self care 02/22/2025 2:32 PM CDT - 02/22/2025 11:59 PM CDT Hospital Encounter [facility] [address] [place] [id number] Luan Hernandez MD Sacroiliitis Discharge Disposition: Discharge to home or self care 02/13/2025 Telephone [facility] [address] [place] [phone] Janette Falcon Med Management (T#3) 02/13/2025 7:10 AM CDT - 02/13/2025 11:59 PM CDT Hospital Encounter [facility] [address] [place] [phone] Raudel Branch, WOOD SCRAP HANDLER Sacroiliitis (Primary Dx); Lumbar post-laminectomy syndrome; Spinal [...] 04/02/2023 Assessment & Plan (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 Continue Hyzaar and metoprolol. 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 Please refer to the physician's procedure / OR operative note. 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
== END 2025-05-15 08:31 | disposition home or self-care (01) ==
PROVIDERS: PCP Family Medicine; Visit Provider Student in an Organized Health Care Education/Training Program
DX: D69.6 Thrombocytopenia, unspecified (principal); R53.83 Other fatigue; I10 Essential (primary) hypertension; E11.9 Type 2 diabetes mellitus without complications; E78.2 Mixed hyperlipidemia; K21.00 Gastro-esophageal reflux disease with esophagitis, without bleeding
CPT/HCPCS: 36415

== ENCOUNTER 2025-07-02 13:59 | Outpatient (CLI) | payer MEDICARE, SELFPAY ==
--- NOTE | ~2025-07-02 | MR_ITS ---
EXAMINATION: MR shoulder RT wo con DATE: 07/02/2025 14:42 INDICATION: Right shoulder pain TECHNIQUE: Magnetic resonance imaging (MRI) of the right shoulder was performed without intravenous contrast. Sequences included axial PD-weighted FS FSE, coronal oblique PD-weighted FS FSE, coronal oblique T2-weighted FS FSE, sagittal PD-weighted FS FSE, and sagittal T1-weighted SE. COMPARISON: None. FINDINGS: Coracoacromial arch: The acromion undersurface is curved in morphology (type II). The coracoacromial ligament is normal. Moderate acromioclavicular osteoarthritis. Rotator cuff: Severe supraspinatus and mild infraspinatus tendinopathy. There is a small full versus near full-thickness bursal sided tear measuring 3 mm AP at the posterior aspect of the superior facet footplate of the supraspinatus tendon. The teres minor tendon is normal. Moderate subscapularis tendinopathy with attenuation of the cephalad half of the tendon with small region of fluid signal extending 9 mm craniocaudally along the mid to cephalad aspect of the lesser tuberosity consistent with partial thickness tear, unclear whether intrasubstance or articular sided is noted retracted tear margin is appreciated. The bursal side of the tendon remains intact and contiguous with the intact transverse humeral ligament. No asymmetric rotator cuff muscle atrophy. Biceps tendon, glenoid labrum and glenohumeral cartilage: There is full-thickness tear of the intra-articular portion of the long head biceps tendon with retraction of the tendon below level of the intertubercular groove. Irregular degenerative tearing of the superior glenoid labrum. Glenoid cartilage is relatively preserved. There is partial thickness cartilage loss with smooth chondral surface at the posterior inferior aspect of the humeral head. Fluid: Physiologic amount of fluid in the glenohumeral joint and biceps tendon sheath. No loose osteochondral bodies. Small amount of fluid in the subacromial/subdeltoid bursa which could be due to mild and/or decompression of glenohumeral joint fluid through the full-thickness supraspinatus tendon tear defect. Bones: Normal marrow signal with no edema, fracture or abnormal marrow replacing process. IMPRESSION: 1. Severe supraspinatus tendinopathy with very small full versus near full- thickness bursal sided tear at the distal insertion of the tendon. 2. Moderate subscapularis tendinopathy with partial-thickness tear of the cephalad half of the distal tendon which appears attenuated but without a clearly identifiable tear margin. 3. Complete tear and distal retraction of the intra-articular long head biceps tendon. 4. Mild glenohumeral osteoarthritis with degenerative tearing at the superior glenoid labrum. 5. Moderate acromioclavicular osteoarthritis. Reviewed, dictated and finalized at location A. IMPRESSION: 1. Severe supraspinatus tendinopathy with very small full versus near full-thic kness bursal sided tear at the distal insertion of the tendon. 2. Moderate subscapularis tendinopathy with partial-thickness tear of the cepha lad half of the distal tendon which appears attenuated but without a clearly id entifiable tear margin. 3. Complete tear and distal retraction of the intra-articular long head biceps tendon. 4. Mild glenohumeral osteoarthritis with degenerative tearing at the superior g lenoid labrum. 5. Moderate acromioclavicular osteoarthritis.
== END 2025-07-02 14:00 | disposition home or self-care (01) ==
LOC: GOSHIMG 13:59
PROVIDERS: Visit Provider Family Medicine
DX: E11.9 Type 2 diabetes mellitus without complications (principal); M19.011 Primary osteoarthritis, right shoulder; S46.111A Strain of muscle, fascia and tendon of long head of biceps, right arm, initial encounter; X58.XXXA Exposure to other specified factors, initial encounter
CPT/HCPCS: 73221